=== PATIENT | male | born 1965 | race Caucasian/White ===

== ENCOUNTER → 2020-10-10 13:22 | Outpatient (BNVA) | payer MEDICAID, SELFPAY | PROVIDERS: PCP Internal Medicine; Visit Provider Urology | DX: Z76.89 Persons encountering health services in other specified circumstances (principal) ==

== ENCOUNTER 2021-02-07 14:15 | Outpatient (REF) | payer MEDICAID, SELFPAY ==
--- NOTE | ~2021-02-07 | XR_ITS ---
EXAMINATION: XR CERVICAL SPINE CLINICAL INFORMATION: Spondylosis. COMPARISON: Cervical spine radiographs dated 03/15/2016. TECHNIQUE: AP, lateral, open-mouth, and bilateral oblique views of the cervical spine. FINDINGS: Straightening of the normal cervical lordosis, which may be positional or related to muscle spasm. No acute fracture or subluxation. No loss of vertebral body height. Loss of intervertebral disc height with anterior endplate osteophytes at C4-C7. Findings appear slightly increased in prominence when compared to the prior examination. Associated bilateral neural foraminal stenosis at C4-C7. Normal atlantoaxial alignment. Unremarkable prevertebral soft tissues. XR/XR cervical spine 4V IMPRESSION: Straightening of the normal cervical lordosis, which may be positional or related to muscular spasm. Degenerative disc disease at C4-C7 with bilateral neural foraminal stenosis, increased when compared to the prior radiographs.
--- NOTE | ~2021-02-07 | XR_ITS ---
EXAMINATION: XR CHEST CLINICAL INFORMATION: Pleurodynia COMPARISON: Chest radiographs 02/01/2016 TECHNIQUE: 2 views of the chest were obtained. 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 The lungs are clear. The vascularity is normal. There is no pneumothorax, pleural reaction, airspace consolidation, or effusion. The heart is normal in size. The vascularity is normal. There is mild curvature again seen thoracic spine. No visible acute bony abnormality. XR/XR chest 2V IMPRESSION: Unremarkable examination.
== END 2021-02-07 14:16 | disposition home or self-care (01) ==
LOC: HO.XRAY 14:15
PROVIDERS: PCP Internal Medicine; Visit Provider Internal Medicine
DX: M47.892 Other spondylosis, cervical region (principal); R07.81 Pleurodynia
CPT/HCPCS: 71046; 72050

== ENCOUNTER 2021-03-23 12:16 | Outpatient (REF) | payer MEDICAID, SELFPAY ==
--- NOTE | ~2021-03-23 | XR_ITS ---
EXAMINATION: XR SHOULDER, LEFT CLINICAL INFORMATION: Shoulder pain COMPARISON: None TECHNIQUE: The left shoulder is imaged in 4 views. FINDINGS: There is no fracture, dislocation, destructive process. The glenohumeral joint appears normal. The acromioclavicular alignment is normal. There are no visible rotator cuff calcifications. XR/XR shoulder LT min 2V IMPRESSION: Normal left shoulder.
[2021-03-23 14:33] LABS: Alanine Aminotransferase 52 U/L (0-40); Albumin Level 3.9 g/dL (3.5-5.0); Alkaline Phosphatase 106 U/L (39-117); Anion Gap 13 (12-20); Aspartate Amino Transferase 27 U/L (5-37); Bilirubin Total 0.4 mg/dL (0.0-1.0); Blood Urea Nitrogen 10 mg/dL (9-16); Calcium 9.4 mg/dL (8.4-10.2); Carbon Dioxide 26 mmol/L (22-29); Chloride 104 mmol/L (96-108); Estimated Glomerular Filt Rate > 60; Glucose Random 151 mg/dL (60-115); Potassium 3.7 mmol/L (3.3-5.1); Sodium 139 mmol/L (135-145); Total Protein 7.1 g/dL (6.5-8.0)
[2021-03-23 14:59] LABS: PSA,Total (Free>4and<10) 1.18 ng/mL (0.00-4.00)
== END 2021-03-23 12:17 | disposition home or self-care (01) ==
LOC: HO.LAB 12:16
PROVIDERS: Absent Provider Urology; PCP Internal Medicine; Visit Provider Student in an Organized Health Care Education/Training Program
DX: M25.50 Pain in unspecified joint (principal); N40.1 Benign prostatic hyperplasia with lower urinary tract symptoms; N13.8 Other obstructive and reflux uropathy; Z12.5 Encounter for screening for malignant neoplasm of prostate
CPT/HCPCS: 36415; 73030; 80053; 84153; 99212

== ENCOUNTER 2021-06-10 10:39 | Outpatient (REF) | payer MEDICAID, SELFPAY ==
[2021-06-10 12:09] LABS: Anion Gap 12 (12-20); Blood Urea Nitrogen 11 mg/dL (9-16); Calcium 9.3 mg/dL (8.4-10.2); Carbon Dioxide 27 mmol/L (22-29); Chloride 105 mmol/L (96-108); Cholesterol 204 mg/dL; Estimated Glomerular Filt Rate > 60; Glucose Random 111 mg/dL (60-115); HDL Cholesterol 29 mg/dL; LDL Cholesterol Calculated 96 mg/dl; Potassium 4.1 mmol/L (3.3-5.1); Sodium 140 mmol/L (135-145); Triglycerides 397 mg/dL
== END 2021-06-10 10:40 | disposition home or self-care (01) ==
LOC: HO.LAB 10:39
PROVIDERS: PCP Internal Medicine; Visit Provider Internal Medicine
DX: E78.2 Mixed hyperlipidemia (principal); F41.9 Anxiety disorder, unspecified; R07.89 Other chest pain; R60.0 Localized edema; R73.01 Impaired fasting glucose
CPT/HCPCS: 36415; 80048; 80061

== ENCOUNTER → 2021-08-04 12:42 | Outpatient (REF) | payer MEDICAID, SELFPAY ==
--- NOTE | 2021-08-04 13:00 | CA_ITS ---
Transthoracic Echocardiogram Patient (Last, First, Middle): Miguel Jackson A Gender: Male Date of : 1965 Age: 55 Procedure Date: 08/04/2021 Procedure Type: Transthoracic Echocardiogram Location: OP Height: 175.26 cm Weight: 99.79 kg BSA: 2.15 m2 Heart Rate: bpm BP: 130 / 90 mmHg Physical Damage Appraiser: DENA Yin MD: Sunita Reddy MD Director Investment Banking: Andrea Bardales MD Symptoms: HTN,CP Study Quality: Fair ECG Rhythm: Sinus Conclusions: - 1. Normal LV systolic function with impaired relaxation filling pattern 2. Normal cardiac valvular Doppler 3. Normal RV systolic pressure 4. No pericardial effusion Findings Left Ventricle Normal left ventricular size, thickness, and systolic function. The visually estimated ejection fraction is between 60-65%. Spectral Doppler is indicative of an impaired relaxation filling pattern. E/E prime ratio is between 8 and 15 consistent with indeterminate filling pressures. Right Ventricle Normal right ventricular cavity size and systolic function. Atria The left atrium is normal in size. There is no evidence of interatrial shunt. The right atrium is normal in size. Aortic Valve Normal aortic valve structure and function. There is no aortic valve stenosis. There is no aortic valve regurgitation. Mitral Valve Normal mitral valve structure and function. There is trace mitral valve regurgitation. There is no mitral valve stenosis. Pulmonic Valve The pulmonic valve is likely normal. There is trace pulmonic valve regurgitation. Tricuspid Valve Normal tricuspid valve structure. There is trace tricuspid valve regurgitation. The right ventricular systolic pressure is normal. The right ventricular systolic pressure is 16 mmHg. Normal right atrial pressure. There is no evidence of pulmonary hypertension. Great Vessels All visible segments of the aorta are normal in size. The pulmonary artery was not well visualized. Venous The inferior vena cava is normal in size and collapses greater than 50% with inspiration. Pericardium/Pleural There is no evidence of pericardial effusion. Prior Study Comparison No significant change compared to prior study dated: 03/29/2016. Measurements 2D Linear Measurements IVSd: 1.09 0.6-0.9/0.6-1.0 cm LVIDd: 4.63 3.9-5.3/4.2-5.9 cm LVIDd Index: 2.15 2.4-3.2/2.2-3.1 cm/m2 LVIDs: 3.24 2.0-3.6 cm LVPWd: 1.00 0.7-1.1 cm Ao Root: 3.70 2.1-3.5 cm LA Diam: 3.90 2.7-3.8/3.0-4.0 cm LAIDs Index: 1.81 1.5-2.3 cm/m2 LV Mass: 212.10 67-162/88-224 g LV Mass Index: 98.65 43-95/49-115 g/m2 LVOT Diam: 2.10 3.0+(-)1.3 cm 2D Systolic Function EF 4C: 55.10 >55% EF 2C: 68.70 >55% EF BiP: 62.00 >55% Mitral Valve MV Pk E: 0.60 MV PK A: 0.73 MV Decel Time: 351.00 E/A: 0.80 E'Lateral: 5.22 E'Medial: 6.20 E/E' Med: 9.70 E/E' Lat: 11.50 PHT: 103.00 MVA PHT: 2.14 Decel [place]: 1.71 Aortic Valve AoV Pk Duke: 1.02 AoV Mn Duke: 0.77 AoV VTI: 0.23 AoV Pk Grad: 4.00 Aov Mn Grad: 3.00 EDWIN Cont.VTI: 2.78 LVOT LVOT Pk Duke: 0.73 LVOT Mn Duke: 0.54 LVOT VTI: 0.19 LVOT Pk Grad: 2.00 LVOT Mn Grad: 1.00 LVOT Diam: 2.10 LVOT Area: 3.46 Diastolic Function MV Pk E: 0.60 MV Pk A: 0.73 E/A: 0.80 E'Medial: 6.20 E/E' Med: 9.70 E' Laterial: 5.22 E/E' Lat: 11.50 Right Ventricle TAPSE (mm): 2.49 TVS' Duke: 12.00 Tricuspid Valve TR Pk Duke: 1.83 TR Pk Grad: 13.00 RA Press: 3.00 RVSP: 16.00 Great Vessels Aorta Ao Root-2D: 3.70 2.0-3.7 cm Ao Asc: 3.50 2.1-3.4 cm Ao Arch: 3.10 Updated in Other Vendor System with Status of Final Andrea Bardales MD electronically signed on 08/05/2021 2:18:56 PM with status of Final
== END ==
LOC: HO.CARD 12:42
PROVIDERS: Visit Provider Internal Medicine
DX: I10 Essential (primary) hypertension (principal); R07.89 Other chest pain; R60.0 Localized edema; R73.01 Impaired fasting glucose
CPT/HCPCS: 93306

== ENCOUNTER → 2021-09-22 13:02 | Outpatient (BNVA) | payer MEDICAID, SELFPAY | PROVIDERS: Visit Provider Urology ==

== ENCOUNTER 2021-12-07 08:06 | Outpatient (REF) | payer MEDICAID, SELFPAY ==
--- NOTE | 2021-12-07 08:09 | EMG_ITS ---
Left tibial and peroneal motor studies were performed. Left superficial peroneal, sural and medial lateral plantar studies were performed. Tibial H-reflex was obtained and paraspinal muscles were tested with a needle. IMPRESSION: 1. No evidence of lumbar radiculopathy. 2. 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 3. 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 MD REMINGTON Diaz/CALEBL / [id number]
== END 2021-12-07 08:07 | disposition home or self-care (01) ==
LOC: HO.NEURO 08:06
PROVIDERS: PCP Internal Medicine; Visit Provider Internal Medicine
DX: M54.42 Lumbago with sciatica, left side (principal)
CPT/HCPCS: 95886; 95910

== ENCOUNTER 2021-12-19 11:46 | Outpatient (REF) | payer MEDICAID, SELFPAY ==
--- NOTE | ~2021-12-19 | XR_ITS ---
EXAMINATION: XR ANKLE, LEFT CLINICAL INFORMATION: Tarsal tunnel syndrome COMPARISON: None TECHNIQUE: AP, lateral, and mortise views of the left ankle. FINDINGS: No fracture or dislocation. Ankle mortise is maintained. Talar dome is intact. Small calcaneal spurring. No abnormal soft tissue calcification. XR/XR ankle LT min 3V IMPRESSION: No acute osseous abnormality
== END 2021-12-19 11:47 | disposition home or self-care (01) ==
LOC: HO.XRAY 11:46
PROVIDERS: PCP Internal Medicine; Visit Provider Internal Medicine
DX: G57.52 Tarsal tunnel syndrome, left lower limb (principal)
CPT/HCPCS: 73610

== ENCOUNTER → 2021-12-27 14:08 | Outpatient (BNVA) | payer MEDICAID, SELFPAY | PROVIDERS: PCP Internal Medicine; Visit Provider Nurse Practitioner Family | DX: M25.50 Pain in unspecified joint (principal); M54.2 Cervicalgia; M54.50 Low back pain, unspecified | CPT/HCPCS: 99212 ==

== ENCOUNTER → 2022-01-09 14:44 | Outpatient (BNVA) | payer MEDICAID, SELFPAY | PROVIDERS: PCP Internal Medicine; Visit Provider Urology | DX: N52.01 Erectile dysfunction due to arterial insufficiency (principal); E29.1 Testicular hypofunction; N32.0 Bladder-neck obstruction | CPT/HCPCS: 52000; 99212 ==

== ENCOUNTER → 2022-04-02 10:44 | Outpatient (BNVA) | payer MEDICAID, SELFPAY | PROVIDERS: PCP Internal Medicine; Visit Provider Internal Medicine | DX: M50.30 Other cervical disc degeneration, unspecified cervical region (principal); M67.912 Unspecified disorder of synovium and tendon, left shoulder; M47.816 Spondylosis without myelopathy or radiculopathy, lumbar region | CPT/HCPCS: 99202 ==

== ENCOUNTER 2022-05-11 17:45 | Outpatient (REF) | payer MEDICAID, SELFPAY ==
--- NOTE | ~2022-05-11 | MR_ITS ---
EXAMINATION: MR CERVICAL SPINE WITHOUT CONTRAST CLINICAL INFORMATION: 56-year-old with self-reported neck pain radiating to the left arm of 6 months' duration with numbness and weakness. Evaluate cervical disc degeneration. COMPARISON: 02/07/2021 x-rays. TECHNIQUE: MRI of the cervical spine was obtained using routine sequences without contrast. TECHNICAL NOTE: Note that the axial and sagittal STIR sequences were degraded by motion artifact on some images. FINDINGS: ALIGNMENT: The cervical spine is anatomically aligned. No spondylolisthesis or retrolisthesis. CRANIOCERVICAL JUNCTION/C1-C2 ARTICULATIONS: Intact and aligned. VISUALIZED INTRACRANIAL STRUCTURES: Within normal limits. VERTEBRAL BODIES: Slight chronic loss of height of the C5 vertebral body and [id number] chronic loss of height of the C6 vertebral body with slight chronic loss of height of C7 stable in appearance from previous x-rays. Remaining vertebral body heights are well-maintained. DISC SPACES AND ENDPLATES: Mild loss of height of the C4-C5 intervertebral disc space stable from x-rays with minor anterior marginal endplate spurring unchanged. [id number] loss of height of C5-C6 with moderate anterior marginal spondylosis stable from previous x-rays. Schmorl's node formation along the superior endplate of C7 with minor anterior marginal endplate spurring at C6-C7. Slightly biconcave fishmouth remodeling at the C6-C7 level as well stable from previous x-rays. BONE MARROW: No suspicious marrow-replacing process or unusual bone marrow edema. Mild type I degenerative marrow signal changes seen along the superior endplate of C7. SPINAL LEVELS: C2-C3: No disc herniation or canal stenosis. No significant DJD or neural foraminal stenosis. C3-C4: No disc herniation or canal stenosis. No significant DJD or neural foraminal stenosis. C4-C5: Central to left paramedian disc protrusion and small right paramedian disc protrusion with posterior endplate spurring and flattening of the ventral dural sac asymmetric to the left without cord impingement. No significant spinal canal stenosis. Bilateral uncovertebral spurring is noted with moderate to severe bilateral neural foraminal stenosis. C5-C6: There is bilateral posterolateral disc osteophyte complex with bilateral uncovertebral spurring without significant spinal canal stenosis. There is moderate to severe bilateral neural foraminal stenosis. C6-C7: Broad-based disc osteophyte complex noted asymmetric to the right with flattening of the ventral dural sac without cord impingement. Mild spinal canal stenosis is noted. There is uncovertebral arthropathy right more than left with moderate left-sided and moderate to severe right-sided neural foraminal stenosis. C7-T1: Right subarticular disc herniation noted with slight encroachment on the right neural foramen, which abuts the exiting right C8 nerve root with [id number] right-sided foraminal stenosis. No canal stenosis. No significant DJD. T1-T2: Tiny right paramedian disc protrusion noted. No facet arthrosis, canal or neural foraminal stenosis. SPINAL CORD: The cervical and visualized upper thoracic spinal cord is normal in morphology, caliber and signal intensity throughout. EXTRACRANIAL SOFT TISSUES: There is a single 1.1 x 1.2 cm suprahyoid right IJ chain lymph node which has a somewhat rounded appearance and there is a 1.7 x 0.8 cm left suprahyoid IJ chain lymph node slightly prominent in size. Other smaller IJ chain lymph nodes are seen bilaterally. Normal signal voids are seen within the major arterial neck vessels. MR/MR cervical spine wo con IMPRESSION: 1. Normal spinal alignment. Multilevel discogenic degenerative changes and spondylosis are noted as described above most apparent between at C4-C5 and C6-C7 inclusive, with multilevel disc herniations and disc osteophyte complex, with mild spinal canal stenosis at C6-C7. No spinal cord impingement. Right lateral disc herniation at C7-T1 encroaches on the exiting right C8 nerve root. 2. Multilevel uncovertebral arthrosis, as described above with the multilevel moderate to severe bilateral neural foraminal stenosis between C4-C5 and C6-C7 inclusive. 3. Moderately prominent suprahyoid IJ chain lymph nodes at level IIA. Follow-up as per clinical indications. On the right, one of these has a rounded appearance. Possible etiologies could include infectious, inflammatory and neoplastic disease. The PSA staff will call to confirm receipt of this report with acknowledgement of the findings and any recommendations.
== END 2022-05-11 17:46 | disposition home or self-care (01) ==
LOC: HO.MRI 17:45
PROVIDERS: Visit Provider Internal Medicine
DX: M50.30 Other cervical disc degeneration, unspecified cervical region (principal)
CPT/HCPCS: 72141

== ENCOUNTER 2022-07-17 10:41 | Outpatient (REF) | payer MEDICAID, SELFPAY ==
[2022-07-22 14:17] LABS: Testosterone, Free 28.7 pg/mL (35.0-155.0); Testosterone, Total 190 ng/dL (250-1100)
== END 2022-07-17 10:42 | disposition home or self-care (01) ==
LOC: HO.LAB 10:41
PROVIDERS: PCP Internal Medicine; Visit Provider Urology
DX: E29.1 Testicular hypofunction (principal)
CPT/HCPCS: 36415; 84402; 84403

== ENCOUNTER 2022-10-02 11:11 | Outpatient (REF) | payer MEDICAID, SELFPAY ==
[2022-10-02 13:06] LABS: Prostate Specific Antigen 0.64 ng/mL (<0.05-4.0)
[2022-10-09 13:39] LABS: Testosterone, Free 61.2 pg/mL (35.0-155.0); Testosterone, Total 342 ng/dL (250-1100)
== END 2022-10-02 11:12 | disposition home or self-care (01) ==
LOC: HO.LAB 11:11
PROVIDERS: PCP Internal Medicine; Visit Provider Urology
DX: E29.1 Testicular hypofunction (principal); N32.0 Bladder-neck obstruction
CPT/HCPCS: 36415; 84153; 84402; 84403

== ENCOUNTER 2022-10-09 15:37 | Outpatient (AMB) | payer MEDICAID, SELFPAY ==
--- NOTE | 2022-10-09 15:38 | MHC.OFFVIS ---
Intake Intake Visit Reasons: PSA/TESTOSTERONE(set) Intake Note: Patient is present for Telephone LABS Follow Up Urology Medication: Sildenafil Blood Thinner: None Allergies ketorolac [From TORADOL] Allergy (Intermediate, Verified 08/30/23 09:37) dizziness tramadol Allergy (Intermediate, Verified 08/30/23 09:37) dizziness HPI HPI Comments History of Present Illness Details Miguel is a pleasant male. He is a patient of Dr. Reddy. He is seen for the following urologic conditions - lower urinary tract symptoms - hypogonadism - erectile dysfunction Maori translation provided by qualified medical insurance collector Cystoscopy performed Bladder neck open Does drink coffee all day and fluid after 07:00 o'clock These will impact nocturia Trial daily tadalafil Lower urinary tract symptoms Prior laser prostatectomy Had previously had reasonable voiding Ongoing urge and urge frequency Prior cystoscopy with bladder neck contracture Initial deferred therapy Hypogonadism Labs - 10/11 T 342 F 61 PSA 0.6 Erectile dysfunction in setting of diabetes Prior responsiveness to Viagra 100 mg PFSH Medical History (Updated 08/30/23 @ 13:05 by OSITO Ortiz-) Ankle pain, right Ankle pain, right Knee pain, right Knee pain, left Rib pain on right side Nocturia Surgical History History of prostate surgery (~2015) Family History (Updated 08/30/23 @ 09:38 by FRANCOIS Dillard) Other CVD (cardiovascular disease) HTN (hypertension) Social History (Updated 08/30/23 @ 09:37 by FRANCOIS Dillard) Household Members: Spouse Alcohol intake: former Patient Tobacco Use Status: Never used Tobacco e-Cigarette/Vaping Use: Never Used Current occupational status: unemployed Review of Systems Const Denies chills and Denies fever(s) Card Reports no additional complaints and Denies syncope Resp Denies cough GI Denies abdominal pain and Denies heartburn Reports as per HPI and Denies change in libido Neuro Denies syncope Psych Denies change in libido Endo Denies change in libido Physical Exam Const General: cooperative, healthy appearing, comfortable and no acute distress Orientation/consciousness: patient oriented x3 HEENT Face and sinus: Yes normal facial exam Mouth: moist mucous membranes Neck Neck: Yes normal visual inspection, Yes full ROM and Yes trachea midline Chest Chest palpation & inspection: normal inspection of the chest Resp Effort & Inspection: normal respiratory effort, able to speak in complete sentences and no respiratory distress GI Inspection: Yes normal to inspection Back/Spine/Pelvis Cervical Spine: normal cervical lordosis Thoracic/Lumbar Spine: thoracic and lumbar spine normal to inspection Skin General skin exam: no rashes or lesions noted Neuro General: patient oriented x3, gait normal, tone normal and moves all extremities Extrem General: Yes normal to inspection and Yes capillary refill normal Assessment & Plan Assessment & Plan (1) Erectile dysfunction due to arterial insufficiency: Code(s): N52.01 - Erectile dysfunction due to arterial insufficiency (2) Bladder outlet obstruction: Code(s): N32.0 - Bladder-neck obstruction Plan Trial tadalafil Six-month follow-up Orders: Orders Prostate Specific Antigen 10/02/22 N32.0 - Bladder-neck obstruction Medications: New tadalafil 5 mg PO DAILY 90 tabs 1RF bladder outlet 90 days N52.01 - Erectile dysfunction due to arterial insufficiency Patient Instructions: Imaging studies, laboratory and physical exam results were discussed and reviewed in detail. No major barriers to patient understanding were identified. An opportunity to ask questions regarding the treatment plan was provided. All questions were answered. The patient expressed understanding and agreement with the above treatment plan. The patient is aware they should contact our office by phone for worsening of their current condition or the appearance of new urologic symptoms. Compliance is encouraged with any medications and followup testing that is ordered. It is a privilege to participate in the urologic care of your patient. If you have any questions or concerns regarding treatment for the above conditions, or other urologic issues, please do not hesitate to contact me. The office telephone contact is [phone]. This note is constructed using voice recognition software. While every effort has been made to ensure accuracy meter supervisor errors may have been included. Yours sincerely, Dr Bronson Kim MD, IB[facility] - Urology Providers of Expert, Compassionate Care for the Genitourinary System Telehealth Telehealth Location of provider rendering services: practice address Location of patient: address on file Patient Identification confirmed using: Name, : Yes Telehealth method: voice only Patient verbally consented to treatment: Yes Patient verbally consented to billing insurance company: Yes Patient informed of any privacy concerns related to visit: Yes Coding Level of Care Code Est Pt Level 4 (42319) Diagnoses Erectile dysfunction due to arterial insufficiency N52.01 Bladder outlet obstruction N32.0
== END 2022-10-09 15:58 | disposition home or self-care (01) ==
LOC: HO.HUSH 15:37
PROVIDERS: PCP Internal Medicine; Visit Provider Urology
DX: N52.01 Erectile dysfunction due to arterial insufficiency (principal); N32.0 Bladder-neck obstruction
CPT/HCPCS: 99214; 99499

== ENCOUNTER → 2022-10-09 15:37 | Outpatient (BNVA) | payer MEDICAID, SELFPAY | PROVIDERS: PCP Internal Medicine; Visit Provider Urology | DX: Z13.89 Encounter for screening for other disorder (principal) | CPT/HCPCS: 99212 ==

== ENCOUNTER → 2023-01-11 14:13 | Outpatient (BNVA) | payer MEDICAID, SELFPAY | PROVIDERS: PCP Internal Medicine; Visit Provider Urology | DX: R39.15 Urgency of urination (principal); N52.01 Erectile dysfunction due to arterial insufficiency; R35.1 Nocturia; E29.1 Testicular hypofunction | CPT/HCPCS: 99212 ==

== ENCOUNTER → 2023-01-16 10:31 | Outpatient (BNVA) | payer MEDICAID, SELFPAY | PROVIDERS: PCP Internal Medicine; Visit Provider Nurse Practitioner Family | DX: M25.50 Pain in unspecified joint (principal); M79.671 Pain in right foot; M79.672 Pain in left foot | CPT/HCPCS: 99212 ==

== ENCOUNTER 2023-01-22 11:03 | Outpatient (REF) | payer MEDICAID, SELFPAY ==
[2023-01-22 14:01] LABS: MANUAL DIFF FLAG NO
[2023-01-22 14:12] LABS: Basophils Percent Auto 0.3 % (0-2); Eosinophils Absolute Auto 0.2 X10*3/uL (0.0-0.4); Eosinophils Percent Auto 1.9 % (0-4); Hemoglobin 14.4 g/dl (14.0-18.0); Imm Gran Abs Auto 0.02 X10*3/uL (0.00-0.03); Imm Gran Pct Auto 0.2 % (0.0-0.4); Lymphocytes Absolute Auto 2.1 X10*3/uL (1.2-4.9); Lymphocytes Percent Auto 22.6 % (20-40); Mean Corpuscular HGB Conc 33.5 g/dl (31.0-36.0); Mean Corpuscular Hemoglobin 28.4 pg (27.0-33.0); Mean Corpuscular Volume 84.8 fL (80.0-98.0); Mean Platelet Volume 10.6 fL (9.4-12.4); Monocytes Absolute Auto 0.7 X10*3/uL (0.1-1.2); Monocytes Percent Auto 7.7 % (2-11); Neutrophils Absolute Auto 6.3 x10*3/uL (2.0-8.3); Neutrophils Percent Auto 67.3 % (45-73); Platelet Count 283 X10*3/uL (160-400); Red Blood Count 5.07 X10*6/uL (4.60-5.80); Red Cell Distribution Width 13.9 % (11.0-16.0); White Blood Count 9.4 X10*3/uL (4.8-10.8)
[2023-01-22 14:20] LABS: Alanine Aminotransferase 36 U/L (0-40); Albumin Level 3.7 g/dL (3.5-5.0); Alkaline Phosphatase 77 U/L (39-117); Anion Gap 14 (12-20); Aspartate Amino Transferase 24 U/L (5-37); Bilirubin Total 0.4 mg/dL (0.0-1.0); Blood Urea Nitrogen 12 mg/dL (9-16); Calcium 8.7 mg/dL (8.4-10.2); Carbon Dioxide 24 mmol/L (22-29); Chloride 106 mmol/L (96-108); Estimated Glomerular Filt Rate > 60; Glucose Random 112 mg/dL (60-115); Sodium 140 mmol/L (135-145); Total Protein 6.5 g/dL (6.5-8.0)
[2023-01-22 14:58] LABS: Erythrocyte Sedimentation Rate 10 MM/HR (0-15)
== END 2023-01-22 11:04 | disposition home or self-care (01) ==
LOC: HO.10HDL 11:03
PROVIDERS: Visit Provider Nurse Practitioner Family
DX: M25.50 Pain in unspecified joint (principal)
CPT/HCPCS: 36415; 80053; 85025; 85652; 86140

== ENCOUNTER 2023-06-25 08:25 | Outpatient (REF) | payer MEDICAID, SELFPAY ==
[2023-06-30 12:49] LABS: Testosterone, Total 127 ng/dL (250-1100)
== END 2023-06-25 08:26 | disposition home or self-care (01) ==
LOC: HO.LAB 08:25
PROVIDERS: PCP Internal Medicine; Visit Provider Urology
DX: E29.1 Testicular hypofunction (principal)
CPT/HCPCS: 36415; 84403

== ENCOUNTER 2023-07-16 13:27 | Outpatient (AMB) | payer MEDICAID, SELFPAY ==
--- NOTE | 2023-07-16 14:18 | MHC.OFFVIS ---
Intake Intake Visit Reasons: 6M Testosterone(set) Intake Note: Patient is Present for Follow Up LABS Urology Medication: Sildenafil, Tadalafil Antibiotic Allergies: None Blood Thinners: Aspirin [facility]: [facility] Allergies ketorolac [From TORADOL] Allergy (Intermediate, Verified 07/16/23 14:20) dizziness tramadol Allergy (Intermediate, Verified 07/16/23 14:20) dizziness Medication List - Last Reconciled 07/16/23 by Bronson Kim MD amlodipine 10 mg PO QAM ammonium lactate 12% appl topical DAILY PRN aspirin 1 tab PO DAILY atenolol 50 mg PO DAILY atorvastatin 40 mg PO BEDTIME blood sugar diagnostic (FreeStyle Lite Strips) As directed bupropion HCl 300 mg PO QAM cholecalciferol (vitamin D3) 50 mcg PO QAM cyanocobalamin (vitamin B-12) 1,000 mcg PO QAM duloxetine 60 mg PO QAM lisinopril 40 mg PO QAM naproxen 500 mg PO BID omeprazole 20 mg PO QAM quetiapine (Seroquel) 100 mg PO BEDTIME sildenafil (Viagra) 25 mg PO DAILY PRN 30 days tadalafil 5 mg PO DAILY 90 days HPI HPI Comments History of Present Illness Details Miguel is a pleasant male. He is a patient of Dr. Reddy. He is seen for the following urologic conditions - lower urinary tract symptoms - hypogonadism - erectile dysfunction Irish translation provided by qualified auditor medical claims Improved well being Low testosterone today on testing Like to continue with daily tadalafil 12 month follow-up Lower urinary tract symptoms Prior laser prostatectomy Ongoing urge and urge frequency Prior cystoscopy with bladder neck contracture 01/09 cystoscopy with open bladder neck Hypogonadism Labs - 10/11 T 342 F 61 PSA 0.6 Erectile dysfunction in setting of diabetes Prior responsiveness to Viagra 100 mg Improvement with daily tadalafil PFSH Medical History Nocturia Surgical History History of prostate surgery (~2015) Family History Other CVD (cardiovascular disease) HTN (hypertension) Social History Alcohol intake: former Patient Tobacco Use Status: Never used Tobacco e-Cigarette/Vaping Use: Never Used Review of Systems Const Denies chills and Denies fever(s) Card Reports no additional complaints and Denies syncope Resp Denies cough GI Denies abdominal pain and Denies heartburn Reports as per HPI and Denies change in libido Neuro Denies syncope Psych Denies change in libido Endo Denies change in libido Physical Exam Const General: cooperative, healthy appearing, comfortable and no acute distress Orientation/consciousness: patient oriented x3 HEENT Face and sinus: Yes normal facial exam Mouth: moist mucous membranes Neck Neck: Yes normal visual inspection, Yes full ROM and Yes trachea midline Chest Chest palpation & inspection: normal inspection of the chest Resp Effort & Inspection: normal respiratory effort, able to speak in complete sentences and no respiratory distress GI Inspection: Yes normal to inspection Back/Spine/Pelvis Cervical Spine: normal cervical lordosis Thoracic/Lumbar Spine: thoracic and lumbar spine normal to inspection Skin General skin exam: no rashes or lesions noted Neuro General: patient oriented x3, gait normal, tone normal and moves all extremities Extrem General: Yes normal to inspection and Yes capillary refill normal Assessment & Plan Assessment & Plan (1) Urinary urgency: Code(s): R39.15 - Urgency of urination (2) Erectile dysfunction due to arterial insufficiency: Code(s): N52.01 - Erectile dysfunction due to arterial insufficiency (3) Bladder outlet obstruction: Code(s): N32.0 - Bladder-neck obstruction Plan One year follow-up Orders: Orders Testosterone, Total 365 Days E29.1 - Testicular hypofunction Prostate Specific Antigen 364 Days E29.1 - Testicular hypofunction Medications: Refilled tadalafil 5 mg PO DAILY 90 tabs 3RF bladder outlet 90 days N52.01 - Erectile dysfunction due to arterial insufficiency Patient Instructions: Imaging studies, laboratory and physical exam results were discussed and reviewed in detail. No major barriers to patient understanding were identified. An opportunity to ask questions regarding the treatment plan was provided. All questions were answered. The patient expressed understanding and agreement with the above treatment plan. The patient is aware they should contact our office by phone for worsening of their current condition or the appearance of new urologic symptoms. Compliance is encouraged with any medications and followup testing that is ordered. It is a privilege to participate in the urologic care of your patient. If you have any questions or concerns regarding treatment for the above conditions, or other urologic issues, please do not hesitate to contact me. The office telephone contact is [phone]. This note is constructed using voice recognition software. While every effort has been made to ensure accuracy electric freight car operator errors may have been included. Yours sincerely, Dr Bronson Kim MD, [facility] - Urology Providers of Expert, Compassionate Care for the Genitourinary System Coding Level of Care Code Est Pt Level 3 (50025) Diagnoses Urinary urgency R39.15 Erectile dysfunction due to arterial insufficiency N52.01 Bladder outlet obstruction N32.0
== END 2023-07-16 14:40 | disposition home or self-care (01) ==
PROVIDERS: PCP Registered Nurse; Visit Provider Urology
DX: R39.15 Urgency of urination (principal); N52.01 Erectile dysfunction due to arterial insufficiency; N32.0 Bladder-neck obstruction
CPT/HCPCS: 99213

== ENCOUNTER → 2023-07-16 13:27 | Outpatient (BNVA) | payer MEDICAID, SELFPAY | PROVIDERS: Visit Provider Urology | DX: R39.15 Urgency of urination (principal); N32.0 Bladder-neck obstruction; N52.01 Erectile dysfunction due to arterial insufficiency | CPT/HCPCS: 99212 ==

== ENCOUNTER 2023-07-23 11:06 | Outpatient (REF) | payer MEDICAID, SELFPAY ==
[2023-07-23 14:08] LABS: Free T4 (Free Thyroxine) 0.95 ng/dL (0.71-1.85); T4 Thyroxine 9.2 ug/dL (4.5-12.0); TSH reflex Free T4 3.38 uIU/mL (0.32-4.0); Thyroid Stimulating Hormone 3.38 uIU/mL (0.32-4.0)
[2023-07-25 02:49] LABS: Triiodothyronine T3 Total 154 ng/dL (76-181)
== END 2023-07-23 11:07 | disposition home or self-care (01) ==
LOC: HO.HHCL 11:06
PROVIDERS: Visit Provider Internal Medicine
DX: R79.89 Other specified abnormal findings of blood chemistry (principal)
CPT/HCPCS: 36415; 84436; 84439; 84443; 84480

== ENCOUNTER 2023-08-09 14:18 | Outpatient (REF) | payer MEDICAID, SELFPAY ==
[2023-08-09 16:16] LABS: MANUAL DIFF FLAG NO
[2023-08-09 16:21] LABS: Basophils Percent Auto 0.4 % (0-2); Eosinophils Absolute Auto 0.2 X10*3/uL (0.0-0.4); Eosinophils Percent Auto 1.5 % (0-4); Hematocrit 46.1 % (42.0-52.0); Hemoglobin 15.4 g/dl (14.0-18.0); Imm Gran Abs Auto 0.03 X10*3/uL (0.00-0.03); Imm Gran Pct Auto 0.3 % (0.0-0.4); Lymphocytes Absolute Auto 2.1 X10*3/uL (1.2-4.9); Lymphocytes Percent Auto 20.4 % (20-40); Mean Corpuscular HGB Conc 33.4 g/dl (31.0-36.0); Mean Corpuscular Hemoglobin 28.6 pg (27.0-33.0); Mean Corpuscular Volume 85.7 fL (80.0-98.0); Monocytes Absolute Auto 0.8 X10*3/uL (0.1-1.2); Monocytes Percent Auto 7.4 % (2-11); Neutrophils Absolute Auto 7.1 x10*3/uL (2.0-8.3); Platelet Count 297 X10*3/uL (160-400); Red Blood Count 5.38 X10*6/uL (4.60-5.80); Red Cell Distribution Width 13.5 % (11.0-16.0); White Blood Count 10.2 X10*3/uL (4.8-10.8)
[2023-08-09 17:05] LABS: Prostate Specific Antigen 1.23 ng/mL (<0.05-4.0)
[2023-08-13 13:48] LABS: Testosterone, Total 457 ng/dL (250-1100)
== END 2023-08-09 14:19 | disposition home or self-care (01) ==
LOC: HO.HHCL 14:18
PROVIDERS: PCP Registered Nurse; Visit Provider Urology
DX: E29.1 Testicular hypofunction (principal); R04.0 Epistaxis
CPT/HCPCS: 36415; 84153; 84403; 85025

== ENCOUNTER 2023-08-30 09:19 | Outpatient (AMB) | payer MEDICAID, SELFPAY ==
--- NOTE | 2023-08-30 09:33 | MHC.OFFVIS ---
Intake Vital Signs 08/30/23 09:34 Height 5 ft 9 in Weight 214 lb 4.629 oz BMI 31.6 BP 106/70 Blood Pressure Location Lt brachial Position Sitting Pulse 64 Pulse Source Pulse Oximeter Temp 97.2 F Temp Source Skin Pulse Oximetry (%) 97 Oxygen Delivery Method Room Air Intake Visit Reasons: joint pain Intake Note: Patient presents today to follow up on joint pain. Last seen- 01/16/23 Estela c/o right sided upper back pain x 2 wks causing limited ROM. Back feels heavy . c/o neck pain limiting ROM Contact Lens Molder Required: Yes Contact Lens Molder Language: Systems Programmer Analyst Name: Marcial [id number] Information Interpreted: clinical only Accompanied by: Self / Same As Patient Allergies ketorolac [From TORADOL] Allergy (Intermediate, Verified 08/30/23 09:37) dizziness tramadol Allergy (Intermediate, Verified 08/30/23 09:37) dizziness HPI HPI Comments History of Present Illness Details Mr. Irene, a 57yoM presents for follow-up of joint pain. Last seen in January 16, 2023. Patient reports chronic cervical neck pain, back pain, knee pain and bilateral ankle pain present for many months. He has a history of degenerative disc disease in the C-spine and follows with Pain Management. He completed an MRI of the cervical spine 05/11/2022, Pain management ordered a Tens unit to help with his low back pain. He has yet followed up with Pain Management. He reports bilateral ankle pain that is worse in the morning and with use. He reports intermittent swelling in bilateral ankles. He is managing his pain symptoms with naproxen with some effect. He also has knee pain. Denies any other joint swelling. He also complains of right posterior rib pain on palpation. It also hurts if he takes a deep breath at times. He continues taking Seroquel, duloxetine and bupropion. He follows with a psychiatrist and a therapist. He states he is sleeping okay. He is not currently exercising at this time. Patient states he does not currently work. Follows with Urology for bladder outlet obstruction. He denies fevers, ulcers, Raynaud's, iritis, uveitis, or hx. of inflammatory bowel disease. FORMERLY [facility], [facility] Medical History (Updated 08/30/23 @ 13:05 by JHONATAN Ortiz) Ankle pain, right Ankle pain, right Knee pain, right Knee pain, left Rib pain on right side Nocturia Surgical History History of prostate surgery (~2016) Family History (Updated 08/30/23 @ 09:38 by FRANCOIS Craft) Other CVD (cardiovascular disease) HTN (hypertension) Social History (Updated 08/30/23 @ 09:37 by FRANCOIS Craft) Household Members: Spouse Alcohol intake: former Patient Tobacco Use Status: Never used Tobacco e-Cigarette/Vaping Use: Never Used Current occupational status: unemployed Review of Systems Const All systems reviewed & are unremarkable except as noted in HPI and below Physical Exam Vital Signs: Last Vital Signs Temp 97.2 F 08/30/23 09:34 Pulse 64 08/30/23 09:34 BP 106/70 08/30/23 09:34 Pulse Ox 97 08/30/23 09:34 Oxygen Delivery Method Room Air 08/30/23 09:34 BMI result Body Mass Index 31.6 APPEARANCE: Patient in no acute distress EYES: no redness, pupils equal and reactive to light, eyelids normal EARS: External ear normal, canal clear and tympanic membrane normal. NOSE/SINUS: Airflow through both nares, no nasal discharge, no bleeding THROAT: Oral mucosa moist, no ulcerations NECK: No thyromegaly or masses, no adenopathy, trachea midline. HEART: Regular rhythm, S1-S2 heard, no murmurs, rubs or gallops. LUNG: Clear to auscultation, respiratory rate regular and nonlabored. ABD: Normal bowel sounds, abdomen soft, nontender. EXTREMITIES: No edema, no calf tenderness, normal peripheral pulses. NEURO: Oriented and alert x3. No focal weakness. Gait normal. SKIN: No inflammatory or neoplastic lesions. Normal color and turgor JOINT EXAM:.?? Cervical Spine:? Full range of motion without pain; slight tenderness to palpation over the cervical spine. Thoracic Spine: No tenderness on palpation. Lumbar Spine:.? Alignment normal.? Pain with flexion, tenderness to palpation over the lumbar spine. Unable to curve spine past 90 degrees without marked discomfort Hands:? Normal pain-free range of motion without tenderness, swelling, increased warmth or erythema. Able to make a full fist and has a good vial gauger strength. Wrists:? Normal pain-free range of motion without tenderness, swelling, increased warmth or erythema. Elbows: Normal pain-free range of motion without tenderness, swelling, increased warmth or erythema. Shoulders:?? Full range of motion without pain. No tenderness, weakness, swelling, increased warmth or erythema. Hips: Full range of motion without pain. Pain in the lower back when lying flat on the exam and completing hip range of motion. Hip bursa:? No tenderness. Knees:? Normal pain-free range of motion without tenderness, swelling, increased warmth or erythema.? There is no effusion or crepitation Ankles: LEFT: Normal range of motion. Slight swelling and tenderness throughout the ankle. No erythema or warmth noted. RIGHT: Normal range of motion. Slight swelling and tenderness throughout the ankle. No erythema or warmth noted. Feet: LEFT: Normal range of motion. Tenderness to palpation throughout the top of the foot, bottom of the foot and over the MTPs. No synovitis noted in the toes. No increased warmth or erythema. RIGHT: Normal range of motion. Tenderness to palpation throughout the top of the foot, bottom of the foot and over the MTPs. No synovitis in the toes. No increased warmth or erythema. Tender points: Tenderness to digital palpation at the greater trochanter. Assessment & Plan Assessment & Plan (1) Knee pain, left: Code(s): M25.562 - Pain in left knee Qualifiers: Chronicity: chronic Qualified Code(s): M25.562 - Pain in left knee; G89.29 - Other chronic pain (2) Ankle pain, right: Code(s): M25.571 - Pain in right ankle and joints of right foot Qualifiers: Chronicity: chronic Qualified Code(s): M25.571 - Pain in right ankle and joints of right foot; G89.29 - Other chronic pain (3) Degenerative, intervertebral disc, cervical: Code(s): M50.30 - Other cervical disc degeneration, unspecified cervical region (4) Rib pain on right side: Code(s): R07.81 - Pleurodynia (5) Knee pain, right: Code(s): M25.561 - Pain in right knee Qualifiers: Chronicity: chronic Qualified Code(s): M25.561 - Pain in right knee; G89.29 - Other chronic pain (6) Ankle pain, right: Code(s): M25.571 - Pain in right ankle and joints of right foot Qualifiers: Chronicity: chronic Qualified Code(s): M25.571 - Pain in right ankle and joints of right foot; G89.29 - Other chronic pain Plan #Knee and Ankle Pain: Mr. Irene, 58 yoM with polyarthralgia more pronounced to his knees and ankles today. On exam patient has deniz tenderness to palpation throughout his feet and trace swelling noted throughout the ankles, but no tenderness to heels. Recommend bilateral ankle x-ray that were ordered at last visit, and I have added xray requisitions for the knees. I will start him on course of Prednisone and reevaluate for improvement. There are possibilities to an inflammatory etiology, such as an axial spondyloarthritis (nraxSPA), given the ankle swelling and lower back pain, though prior testing with negative DEONNA, rheumatoid factor, anti CCP antibody and HLA B27.? X-rays of the left shoulder (2020) and left ankle (2021) where normal. #Cervical spine:Cervical spine MRI April 2022 showed multilevel degenerative changes and spondylosis, with multilevel disc herniation and disc osteophyte complex and mild to moderate spinal canal stenosis at C6-C7. No spinal cord impingement. Right lateral disc herniation at C7-T1 encroaches on the exiting right C8 nerve root. MRI also details moderately prominent suprahyoid IJ chain lymph nodes at level IIA. On the right one of these has a rounded appearance. No lymphadenopathy noted on exam today. MRI results reviewed with patient. I recommend he follow-up with pain management as he continues to have cervical spine pain. He has not yet seen ENT for further evaluation of lymph nodes, despite the consult placed at last visit. Xray of his cervical spine (2020)showed possible muscle spasm and some degenerative disc disease. #Right posterior Rib Pain: Tenderness on palpation along right posterior 5th and 6th rib which patient says hurts more when in inhales deeply. No friction rub heard on PE, LCTA. Given that it is the posterior rib and not the area of the breast bone, this is less likely costochondritis and more possibly muscle strain or bruise. Discomfort increase when patient does a contralateral stretch. Will Obtain Xray to assess. Patient with a few fibromyalgia tender points on exam. Advised patient to incorporate light daily activity and follow-up with mental health provider. Continue current medications per psychiatry. . Orders: Orders XR ribs BI 3V Today R07.81 - Pleurodynia XR knee RT 3V Today M25.561 - Pain in right knee XR knee LT 3V Today M25.562 - Pain in left knee PT Evaluation and Treatment Today M25.561 - Pain in right knee, M25.562 - Pain in left knee, M47.816 - Spondylosis without myelopathy or radiculopathy, lumbar region, R07.81 - Pleurodynia Medications: New prednisone Take 3 tablets per day for 7 days, 2 tablets per day x 7 days, 1 tablet x 7 days and stop. 5 mg PO DIRECTED 90 tabs 0RF Coding Level of Care Code Est Pt Level 4 (73523) Diagnoses Chronic pain of left knee M25.562; G89.29 Chronicity: chronic Chronic pain of right ankle M25.571; G89.29 Chronicity: chronic Degenerative, intervertebral disc, cervical M50.30 Rib pain on right side R07.81 Chronic pain of right knee M25.561; G89.29 Chronicity: chronic
[2023-08-30 09:34] VITALS: BP 106/70; PULSE 64; TEMP 36.2; O2SAT 97; BMI 31.6
== END 2023-08-30 11:28 | disposition home or self-care (01) ==
PROVIDERS: PCP Registered Nurse; Visit Provider Nurse Practitioner Family
DX: M25.562 Pain in left knee (principal); G89.29 Other chronic pain; M25.571 Pain in right ankle and joints of right foot; M50.30 Other cervical disc degeneration, unspecified cervical region; R07.81 Pleurodynia; M25.561 Pain in right knee
CPT/HCPCS: 99214

== ENCOUNTER → 2023-08-30 09:19 | Outpatient (BNVA) | payer MEDICAID, SELFPAY | PROVIDERS: PCP Registered Nurse; Visit Provider Nurse Practitioner Family | DX: M25.562 Pain in left knee (principal); M25.561 Pain in right knee; M25.571 Pain in right ankle and joints of right foot; M50.30 Other cervical disc degeneration, unspecified cervical region; R07.81 Pleurodynia; G89.29 Other chronic pain | CPT/HCPCS: 99212 ==

== ENCOUNTER 2023-09-27 10:41 | Outpatient (REF) | payer MEDICAID, SELFPAY ==
--- NOTE | ~2023-09-27 | XR_ITS ---
EXAMINATION: 1. RADIOGRAPHS BILATERAL RIBS 2. RADIOGRAPHS RIGHT KNEE 3. RADIOGRAPHS LEFT KNEE CLINICAL INFORMATION: Right-sided rib pain. Bilateral knee pain. COMPARISON: Chest x-ray 02/07/2021 and bilateral knee radiographs 01/26/2023 TECHNIQUE: 4 views of the ribs and 3 views of each knee were obtained. FINDINGS: Bilateral RIBS: Cardiac silhouette is normal in size. The lungs are well aerated. There is no lobar consolidation. No pleural effusion or pneumothorax. No rib fracture identified. Right knee: No fracture or dislocation. No suprapatellar joint effusion. Joint spaces maintained. Tiny tricompartmental marginal osteophytes. No localized soft tissue swelling of the anterior knee. Left knee: No fracture or dislocation. No suprapatellar joint effusion. Joint spaces maintained. Tiny tricompartmental mental marginal osteophytes. No localized soft tissue swelling the anterior knee. Punctate metallic foreign body within the superficial tissues of the anterior knee. XR/XR knee RT 3V IMPRESSION: 1. No rib fracture. 2. No acute pulmonary pathology. 3. Minimal degenerative changes of both knees. 4. Punctate metallic foreign body within the superficial tissues of the anterior knee.
--- NOTE | ~2023-09-27 | XR_ITS ---
EXAMINATION: 1. RADIOGRAPHS BILATERAL RIBS 2. RADIOGRAPHS RIGHT KNEE 3. RADIOGRAPHS LEFT KNEE CLINICAL INFORMATION: Right-sided rib pain. Bilateral knee pain. COMPARISON: Chest x-ray 02/07/2021 and bilateral knee radiographs 01/26/2023 TECHNIQUE: 4 views of the ribs and 3 views of each knee were obtained. FINDINGS: Bilateral RIBS: Cardiac silhouette is normal in size. The lungs are well aerated. There is no lobar consolidation. No pleural effusion or pneumothorax. No rib fracture identified. Right knee: No fracture or dislocation. No suprapatellar joint effusion. Joint spaces maintained. Tiny tricompartmental marginal osteophytes. No localized soft tissue swelling of the anterior knee. Left knee: No fracture or dislocation. No suprapatellar joint effusion. Joint spaces maintained. Tiny tricompartmental mental marginal osteophytes. No localized soft tissue swelling the anterior knee. Punctate metallic foreign body within the superficial tissues of the anterior knee. XR/XR knee LT 3V IMPRESSION: 1. No rib fracture. 2. No acute pulmonary pathology. 3. Minimal degenerative changes of both knees. 4. Punctate metallic foreign body within the superficial tissues of the anterior knee.
--- NOTE | ~2023-09-27 | XR_ITS ---
EXAMINATION: 1. RADIOGRAPHS BILATERAL RIBS 2. RADIOGRAPHS RIGHT KNEE 3. RADIOGRAPHS LEFT KNEE CLINICAL INFORMATION: Right-sided rib pain. Bilateral knee pain. COMPARISON: Chest x-ray 02/07/2021 and bilateral knee radiographs 01/26/2023 TECHNIQUE: 4 views of the ribs and 3 views of each knee were obtained. FINDINGS: Bilateral RIBS: Cardiac silhouette is normal in size. The lungs are well aerated. There is no lobar consolidation. No pleural effusion or pneumothorax. No rib fracture identified. Right knee: No fracture or dislocation. No suprapatellar joint effusion. Joint spaces maintained. Tiny tricompartmental marginal osteophytes. No localized soft tissue swelling of the anterior knee. Left knee: No fracture or dislocation. No suprapatellar joint effusion. Joint spaces maintained. Tiny tricompartmental mental marginal osteophytes. No localized soft tissue swelling the anterior knee. Punctate metallic foreign body within the superficial tissues of the anterior knee. XR/XR ribs BI min 4V w CXR1V IMPRESSION: 1. No rib fracture. 2. No acute pulmonary pathology. 3. Minimal degenerative changes of both knees. 4. Punctate metallic foreign body within the superficial tissues of the anterior knee.
== END 2023-09-27 10:42 | disposition home or self-care (01) ==
LOC: HO.XRAY 10:41
PROVIDERS: PCP Internal Medicine; Visit Provider Nurse Practitioner Family
DX: M25.561 Pain in right knee (principal); M25.562 Pain in left knee; R07.81 Pleurodynia
CPT/HCPCS: 71111; 73562

== ENCOUNTER 2024-07-10 09:01 | Outpatient (REF) | payer MEDICAID, SELFPAY ==
[2024-07-10 09:43] LABS: Hematocrit 43.3 % (42.0-52.0); Hemoglobin 14.6 g/dl (14.0-18.0); Mean Corpuscular HGB Conc 33.7 g/dl (31.0-36.0); Mean Corpuscular Hemoglobin 29.1 pg (27.0-33.0); Mean Corpuscular Volume 86.3 fL (80.0-98.0); Mean Platelet Volume 9.8 fL (9.4-12.4); Platelet Count 252 X10*3/uL (160-400); Red Blood Count 5.02 X10*6/uL (4.60-5.80); Red Cell Distribution Width 13.6 % (11.0-16.0); White Blood Count 7.2 X10*3/uL (4.8-10.8)
[2024-07-10 10:45] LABS: Prostate Specific Antigen 1.13 ng/mL (<0.05-4.0)
[2024-07-15 22:07] LABS: Testosterone, Free 93.3 pg/mL (35.0-155.0); Testosterone, Total 438 ng/dL (250-1100)
== END 2024-07-10 09:02 | disposition home or self-care (01) ==
LOC: HO.LAB 09:01
PROVIDERS: PCP Internal Medicine; Visit Provider Urology
DX: E29.1 Testicular hypofunction (principal)
CPT/HCPCS: 36415; 84153; 84402; 84403; 85027

== ENCOUNTER 2024-07-17 13:12 | Outpatient (AMB) | payer MEDICAID, SELFPAY ==
--- NOTE | 2024-07-17 13:33 | A.OFFVIS_ITS ---
Intake Visit Reasons: 1Y Follow Up- PSA/Testo(Testo pending) Intake Note: Patient is Present for Follow Up PSA/Testo Results Urology Medication: Tadalafil Antibiotic Allergies:None Blood Thinners: Aspirin Recent LABS: 07/10/24 PSA: 1.13 Total Testosterone: 438 Melt Down Furnace Operator Required: Yes Melt Down Furnace Operator Language: Carroting Machine Operator Services: Melt Down Furnace Operator Present Accompanied by: Self / Same As Patient Allergies ketorolac [From TORADOL] Allergy (Intermediate, Verified 07/17/24 13:38) dizziness tramadol Allergy (Intermediate, Verified 07/17/24 13:38) dizziness Medication List - Last Reconciled 07/17/24 by Bronson Kim MD amlodipine 10 mg PO QAM ammonium lactate 12% appl topical DAILY PRN aspirin 1 tab PO DAILY atenolol 50 mg PO DAILY atorvastatin 40 mg PO BEDTIME blood pressure test kit-large As directed blood sugar diagnostic (FreeStyle Lite Strips) As directed bupropion HCl XL 300 mg PO QAM cholecalciferol (vitamin D3) 50 mcg PO QAM cyanocobalamin (vitamin B-12) 1,000 mcg PO QAM diclofenac sodium 1% topical duloxetine 60 mg PO QAM fluticasone propionate 50 mcg/actuation 1 spray intranasal QAM lancets (TRUEplus Lancets) As directed lisinopril 40 mg PO QAM naproxen 500 mg PO BID omeprazole 20 mg PO QAM prednisone 5 mg PO DIRECTED quetiapine (Seroquel) 100 mg PO BEDTIME quetiapine 200 mg PO BEDTIME tadalafil 5 mg PO DAILY 90 days HPI Comments Details: Miguel is a pleasant male. He is a patient of Dr. Reddy. He is seen for the following urologic conditions - lower urinary tract symptoms - hypogonadism - erectile dysfunction German translation provided by qualified medical services manager Yearly follow-up Testosterone improved with daily tadalafil Yearly follow-up Lower urinary tract symptoms Prior laser prostatectomy Ongoing urge and urge frequency Prior cystoscopy with bladder neck contracture 01/09 cystoscopy with open bladder neck Hypogonadism Labs - 10/11 T 342 F 61 PSA 0.6, 07/14 440 1.2 Erectile dysfunction in setting of diabetes Prior responsiveness to Viagra 100 mg Improvement with daily tadalafil PFSH Medical History Ankle pain, right Ankle pain, right Knee pain, right Knee pain, left Rib pain on right side Nocturia Surgical History History of prostate surgery (~2016) Family History Other CVD (cardiovascular disease) HTN (hypertension) Social History Household Members: Spouse Alcohol intake: former Patient Tobacco Use Status: Never used Tobacco e-Cigarette/Vaping Use: Never Used Current occupational status: unemployed Review of Systems Const Denies chills and Denies fever(s) Card Reports no additional complaints and Denies syncope Resp Denies cough GI Denies abdominal pain and Denies heartburn Reports as per HPI and Denies change in libido Neuro Denies syncope Psych Denies change in libido Endo Denies change in libido Physical Exam Const General: cooperative, healthy appearing, comfortable and no acute distress Orientation/consciousness: patient oriented x3 HEENT Face and sinus: Yes normal facial exam Mouth: moist mucous membranes Neck Neck: Yes normal visual inspection, Yes full ROM and Yes trachea midline Chest Chest palpation & inspection: normal inspection of the chest Resp Effort & Inspection: normal respiratory effort, able to speak in complete sentences and no respiratory distress GI Inspection: Yes normal to inspection Back/Spine/Pelvis Cervical Spine: normal cervical lordosis Thoracic/Lumbar Spine: thoracic and lumbar spine normal to inspection Skin General skin exam: no rashes or lesions noted Neuro General: patient oriented x3, gait normal, tone normal and moves all extremities Extrem General: Yes normal to inspection and Yes capillary refill normal Assessment & Plan Assessment & Plan (1) Bladder outlet obstruction: Code(s): N32.0 - Bladder-neck obstruction Category: Medical (2) Erectile dysfunction due to arterial insufficiency: Code(s): N52.01 - Erectile dysfunction due to arterial insufficiency Category: Medical (3) Nocturia: Code(s): R35.1 - Nocturia Category: Medical Plan 12 month follow-up Orders: Orders Testosterone, Free/Total 07/10/24 E29.1 - Testicular hypofunction Prostate Specific Antigen 07/10/24 E29.1 - Testicular hypofunction Complete Blood Count no Diff 07/10/24 E29.1 - Testicular hypofunction Patient Instructions: Imaging studies, laboratory and physical exam results were discussed and reviewed in detail. No major barriers to patient understanding were identified. An opportunity to ask questions regarding the treatment plan was provided. All questions were answered. The patient expressed understanding and agreement with the above treatment plan. The patient is aware they should contact our office by phone for worsening of their current condition or the appearance of new urologic symptoms. Compliance is encouraged with any medications and followup testing that is ordered. It is a privilege to participate in the urologic care of your patient. If you have any questions or concerns regarding treatment for the above conditions, or other urologic issues, please do not hesitate to contact me. The office telephone contact is [phone]. This note is constructed using voice recognition software. While every effort has been made to ensure accuracy clinical rehabilitation aide errors may have been included. Yours sincerely, Dr Bronson Kim MD, [facility] - Urology Providers of Expert, Compassionate Care for the Genitourinary System Coding Level of Care Code Est Pt Level 4 (25098) Diagnoses Bladder outlet obstruction N32.0 Erectile dysfunction due to arterial insufficiency N52.01 Nocturia R35.1
== END 2024-07-17 14:21 | disposition home or self-care (01) ==
PROVIDERS: PCP Internal Medicine; Visit Provider Urology
DX: N32.0 Bladder-neck obstruction (principal); N52.01 Erectile dysfunction due to arterial insufficiency; R35.1 Nocturia
CPT/HCPCS: 99214

== ENCOUNTER → 2024-07-17 13:12 | Outpatient (BNVA) | payer MEDICAID, SELFPAY | PROVIDERS: PCP Internal Medicine; Visit Provider Urology | DX: E29.1 Testicular hypofunction (principal); E11.69 Type 2 diabetes mellitus with other specified complication; N52.1 Erectile dysfunction due to diseases classified elsewhere | CPT/HCPCS: 99212 ==

== ENCOUNTER 2024-07-17 14:47 | Outpatient (REF) | payer MEDICAID, SELFPAY ==
[2024-07-17 16:52] LABS: Cholesterol 127 mg/dL (<200); HDL Cholesterol 32 mg/dL (>40); LDL Cholesterol Calculated 54 mg/dL (<100); Triglycerides 205 mg/dL (<150)
[2024-07-17 17:50] LABS: Reflex LDLD? No
[2024-07-29 11:18] LABS: Testosterone, Total 435 ng/dL (250-1100)
== END 2024-07-17 14:48 | disposition home or self-care (01) ==
LOC: HO.HHCL 14:47
PROVIDERS: Visit Provider Internal Medicine
DX: I10 Essential (primary) hypertension (principal); E29.1 Testicular hypofunction; R73.01 Impaired fasting glucose
CPT/HCPCS: 36415; 80061; 84402; 84403

== ENCOUNTER 2024-11-11 13:16 | Outpatient (AMB) | payer MEDICAID, SELFPAY ==
--- NOTE | 2024-11-11 13:28 | A.OFFVIS_ITS ---
Vital Signs 11/11/24 13:32 Height 5 ft 9 in Weight 219 lb 5.759 oz BMI 32.4 BP 132/80 Blood Pressure Location Lt brachial Position Sitting Pulse 65 Pulse Source Pulse Oximeter Pulse Oximetry (%) 97 Oxygen Delivery Method Room Air Intake Visit Reasons: Arthralgia Intake Note: Patient presents for Arthralgia. Revenue Stamper Required: Yes Revenue Stamper Language: Development Engineer Services: Revenue Stamper Offered & Declined Revenue Stamper Name: Coni Christian Information Interpreted: non-clinical & clinical Line Crew Supervisor: Line Crew Supervisor Present (Coni Christian) Accompanied by: Spouse Allergies ketorolac [From TORADOL] Allergy (Intermediate, Verified 11/11/24 13:32) dizziness tramadol Allergy (Intermediate, Verified 11/11/24 13:32) dizziness Medication List - Last Reconciled 11/11/24 by Marilyn Crooks MD amlodipine 10 mg PO QAM ammonium lactate 12% appl topical DAILY PRN aspirin 1 tab PO DAILY atenolol 50 mg PO DAILY atorvastatin 40 mg PO BEDTIME blood pressure test kit-large As directed blood sugar diagnostic (FreeStyle Lite Strips) As directed bupropion HCl XL 300 mg PO QAM cholecalciferol (vitamin D3) 50 mcg PO QAM cyanocobalamin (vitamin B-12) 1,000 mcg PO QAM diclofenac sodium 1% topical duloxetine 60 mg PO QAM fluticasone propionate 50 mcg/actuation 1 spray intranasal QAM lancets (TRUEplus Lancets) As directed lisinopril 40 mg PO QAM naproxen 500 mg PO BID omeprazole 20 mg PO QAM quetiapine (Seroquel) 100 mg PO BEDTIME quetiapine 200 mg PO BEDTIME tadalafil 5 mg PO DAILY 90 days HPI Comments Details: Patient is a 59-year-old Upper Sorbian-speaking male with hypertension, and hyperlipidemia who presents for follow up of polyarthralgias Interval History: Patient last seen 08/30/2023 with Nancy Levy. At that time he was reporting chronic cervical neck pain, back pain, knee pain and bilateral ankle pain. He has a history of degenerative disc disease in the C-spine and follows with pain management for this. His last MRI of the C-spine was 05/11/2022 and pain management ordered a 10s unit to help him with his lower back pain. His ankle pain was his most bothersome issue at that time. There was some swelling noted to the bilateral ankles and so he was given a short course of prednisone. Today Patient complains of neck pain, back pain, knee pain and ankle pain. Pain does not have a specific time where it is worse it occurs throughout the day No associated swelling Stiffness lasting 20-30 minutes in the morning Rheumatologic History: Follows up for polyarticular osteoarthritis and degenerative joint disease Current Rheumatology Medication(s): [facility] Medical History Ankle pain, right Ankle pain, right Knee pain, right Knee pain, left Rib pain on right side Nocturia Surgical History History of prostate surgery (~2016) Family History Other CVD (cardiovascular disease) HTN (hypertension) Social History Household Members: Spouse Alcohol intake: former Patient Tobacco Use Status: Never used Tobacco e-Cigarette/Vaping Use: Never Used Current occupational status: unemployed Review of Systems Const Details: Review of Systems Constitutional: Denies fever, chills, weight loss ENT: Denies vision changes, eye pain or eye redness, dental caries, dry mouth GI: Denies nausea, vomiting, diarrhea, abdominal pain, change in BM Pulm: Denies SOB, ONEIL, hemoptysis, wheezing Cards: Denies chest pain, palpitations Skin: Denies Raynaud's, rash, nail changes, photosensitivity, RECREATION FACILITY ATTENDANT: Denies headaches, weakness, paresthesias, recurrent falls MSK: as per HPI All other systems reviewed and are unremarkable except noted above Physical Exam Vital Signs: Last Vital Signs Pulse 65 11/11/24 13:32 BP 132/80 11/11/24 13:32 Pulse Ox 97 11/11/24 13:32 Oxygen Delivery Method Room Air 11/11/24 13:32 BMI result Body Mass Index 32.4 Vital signs reviewed Physical Examination CONSTITUITIONAL Patient alert and cooperative. Well appearing and in no apparent painful distress HEENT Conjunctiva and sclera clear. ?Pupils equal round and reactive to light. ?No lymphadenopathy. ? CHEST/RESPIRATORY SYSTEM Normal respiratory effort and able to speak in complete sentences. ?Clear to auscultation bilaterally. ?No crackles, rales, rhonchi, wheezes heard. CARDIAC SYSTEM Regular rate and rhythm. ?S1 and S2 heard no murmurs. ?Radial pulses intact bilaterally MSK Hands: ?Good lathe sander strength bilaterally. No deformities noted. ?No synovitis noted to the MCPs, PIPs or DIPs. ?No tenderness to palpation of these joints. Wrists: ?Full range of motion at the wrists without pain. ?No tenderness to palpation or synovitis noted to the wrists. Elbows: Full range of motion without pain. No tenderness, weakness, swelling, increased warmth or erythema. Shoulders: Full range of motion without pain. No tenderness, weakness, swelling, increased warmth or erythema. Hips: Full range of motion without pain. Hip bursa: No tenderness to palpation Knees: ?Full range of motion. ?No tenderness, swelling, increased warmth or erythema.? Crepitations palpated Ankles: Full range of motion. ?Mild tenderness to palpation of the ankle joint no swelling noted. Feet: ?Negative squeeze test. ?No tenderness to palpation or swelling of the MTPs. Tender points:?No tenderness to palpation of the bilateral trapezius, supraspinatus, greater trochanters, anterior costochondral junctions, bilateral gluteal areas, bilateral suboccipital muscle insertions SKIN Skin intact without rashes. Results Reviewed Results Reviewed: Laboratory Tests 01/22/23 07/10/24 11:05 09:22 WBC 7.2 RBC 5.02 Hgb 14.6 Hct 43.3 Plt Count 252 ESR 10 XR Bilateral Knees 09/2023 FINDINGS: Right knee: No fracture or dislocation. No suprapatellar joint effusion. Joint spaces maintained. Tiny tricompartmental marginal osteophytes. No localized soft tissue swelling of the anterior knee. Left knee: No fracture or dislocation. No suprapatellar joint effusion. Joint spaces maintained. Tiny tricompartmental mental marginal osteophytes. No localized soft tissue swelling the anterior knee. Punctate metallic foreign body within the superficial tissues of the anterior knee. Assessment & Plan Assessment & Plan (1) Polyosteoarthritis: Code(s): M15.9 - Polyosteoarthritis, unspecified Category: Medical Qualifiers: Osteoarthritis type: primary Qualified Code(s): M15.0 - Primary generalized (osteo)arthritis Plan: #Polyarthralgias 2/2 polyosteoarthritis Patient is a 59-year-old male with polyarthralgias secondary to polyarticular osteoarthritis. With respect to his knees I recommended that he do topical diclofenac 4 times a day. He can receive gel injections in the future if the pain worsens. With respect to his bilateral ankles there was no obvious evidence of any degenerative disease. I recommended topical diclofenac as well as Harry-William for his other muscular issues. He was also complaining of sciatica type pain with pain running down his bilateral lower extremities. Recommended gabapentin for this. Plan - Gabapentin 100-300mg tablets at night - Topical diclofenac to the bilateral knees 4 times a day - Bengay for muscle tension - Consider gel injections in the future - RTC 1 year or sooner Plan I spent 20 minutes reviewing the record and labs, taking a history, examining the patient, discussing the treatment plan and documenting in the medical record Medications: New camphor-methyl salicyl-menthol 4-30-10 % (Bengay Ultra Strength) 1 appl topical BID-QID PRN 113 grams 4RF muscle pain M15.9 - Polyosteoarthritis, unspecified diclofenac sodium 1% (Arthritis Pain (diclofenac)) apply to bilateral knees 4 times a day 4 grams topical QID 100 grams 4RF M15.9 - Polyosteoarthritis, unspecified gabapentin Please take 1 to 3 tablets at bedtime as tolerated 300 mg (3 x 100 mg) PO BEDTIME 90 days 270 caps 2RF M15.9 - Polyosteoarthritis, unspecified Discontinued prednisone Take 3 tablets per day for 7 days, 2 tablets per day x 7 days, 1 tablet x 7 days and stop. Discontinued Reason: Doctor's Order 5 mg PO DIRECTED 90 tabs 0RF Coding Level of Care Code Est Pt Level 3 (19230) Diagnoses Primary osteoarthritis involving multiple joints M15.0 Osteoarthritis type: primary
[2024-11-11 13:32] VITALS: BP 132/80; PULSE 65; O2SAT 97; BMI 32.4
--- OUTSIDE RECORDS SUMMARY | 2024-11-11 15:23 | XMS_ITS | Encounter Summary ---
Author Organization [employer] Address [address] [place] [address] Care Team Providers Care Industrial Custodian Name Role Phone Sunita Reddy MD Primary Care Provider + Tera Mills PharmD Unavailable [phone] Encounter Details Date Type Department Care Team (Late st Contact Info) Description 09/27/2023 Abstract [facility] [address] [place], [place] [phone] Aditi Mildred [address] [place], [place] [phone] Social History Tobacco Use Types Packs/Day Years Used Date Smoking Tobacco: Never Smokeless Tobacco: Never Alcohol Use Standard Drinks/Week Comments Never 0 (1 standard drink = 0.6 oz pur e alcohol) Depression Answer Date Recorded Patient Health Questionnaire-9 Score 0 07/23/2023 Housing Stability Answer Date Recorded What is your housing situation today? I have ramiro saunders 08/06/[address] you li ve. Do you have problems with any of the following? None of the above 08/06/2023 Food Insecurity Answer Date Recorded Within the past 12 months, y ou worried that your food would run out before you got money to buy more: Never True 08/06/2023 Within the past 12 months,th e food you bought just didn't last and you didn't have enough money to get more: Never True Transportation Answer Date Recorded In the past 12 months, has l ack of transportation kept you from medical appts, meetings, work or from getting things needed for daily living? No 08/06/2023 Utilities Answer Date Recorded In the past 12 months, has t he [employer], gas, oil or water company threatened to shut off services in your home? No 08/06/2023 Depression Answer Date Recorded Patient Health Questionnaire-2 Score 0 07/23/2023 Sex and Gender Information Value Date Recorded Sex Assigned at Male 08/20/2022 10:29 AM EDT Legal Sex Male 10:29 AM EDT Gender Identity Male 08/20/2022 10:29 AM EDT Sexual Orientation Choose not to disclose 2021 10:29 AM EDT documented as of this encounter Plan of Treatment Not on file documented as of this encounter Goals Goal Patient Goal Type Associated Problems Recent Progress Patient-Stated? Author Blood Pressure < 140/90 Blood Pressure 134/84( 024 1:46 PM EDT) No Tera Mills PharmD Record your blood pressure once per day Blood Pressure No Tera Mills PharmD documented as of this encounter Visit Diagnoses Not on filedocumented in this encounter Additional Health Concerns Assessment Noted Time PHQ-9 Depression Total Score: 0 07/23/20 23 10:17 AM EDT documented as of this encounter Care Teams Industrial Custodian Relationship Specialty Start Date End Date Sunita Reddy MD [address] [place] [address] PCP - General Family Medicine 07/14/19 Tera Mills, KelyD [address] [place] [address] Pharmacist Internal Medicine 09/25/22 08/16/24 documented as of this encounter
--- OUTSIDE RECORDS SUMMARY | 2024-11-11 15:23 | XMS_ITS | Encounter Summary ---
Author Organization [employer] Address [address] [place] [address] Care Team Providers Care Health Researcher Name Role Phone Sunita Reddy MD Primary Care Provider + Tera Mills PharmD Unavailable [phone] Encounter Details Date Type Department Care Team ([facility] st Contact Info) Description 07/21/2024 Orders Only [facility] [address] [place], [place] [phone] Sunita Reddy MD [address] [place], [place] [phone] ASCVD (arteriosclerotic cardiovascular disease) (Primary Dx) Social History Tobacco Use Types Packs/Day Years [...] the past 12 months, has t he electric, gas, oil or water company threatened to [...] documented as of this encounter Visit Diagnoses Diagnosis ASCVD (arteriosclerotic cardiovascular disease)- Primary Unspecified cardiovascular disease documented in this encounter Additional Health Concerns Assessment Noted Time PHQ-9 Depression Total Score: 0 07/23/20 23 10:17 AM EDT documented as of this encounter Care Teams Health Researcher Relationship Specialty Start Date End Date Sunita Reddy MD [address] [place] [address] PCP - General Family Medicine 07/14/19 Tera Mills PharmD [address] [place] [address] Pharmacist Internal Medicine 09/25/22 08/16/24 documented as of this encounter
--- OUTSIDE RECORDS SUMMARY | 2024-11-11 15:23 | XMS_ITS | Encounter Summary ---
Author Organization [employer] [facility] Address [address] [place] [address] Care Team Providers Care Playback Operator Name Role Phone Sunita Reddy MD Primary Care Provider + Tera Mills PharmD Unavailable [phone] Encounter Details Date Type Department Care Team (Latest Contact Info) Description 07/27/2019 Abstract [facility] CONVERSIONS Dental, Provider, DDS Social History Tobacco Use Types Packs/Day Years Used Date Smoking Tobacco: Never Assessed Sex and Gender Information Value Date Recorded Sex Assigned at Male 08/20/2022 10:29 AM EDT Legal Sex Male 10:29 AM EDT Gender Identity Male 08/20/2022 10:29 AM EDT Sexual Orientation Choose not to disclose 2021 10:29 AM EDT documented as of this encounter Plan of Treatment Not on file documented as of this encounter Visit Diagnoses Not on filedocumented in this encounter Care Teams Playback Operator Relationship Specialty Start Date End Date Sunita Reddy MD [address] [place] [address] PCP - General Family Medicine 07/14/19 Tera Mills, PharmD [address] [place] [address] Pharmacist Internal Medicine 09/25/22 08/16/24 documented as of this encounter
--- OUTSIDE RECORDS SUMMARY | 2024-11-11 15:23 | XMS_ITS | Encounter Summary ---
Author Organization [employer] Address [address] [place] [address] Care Team Providers Care Business Dean Name Role Phone Sunita Reddy MD Primary Care Provider + Reason for Visit * Reason Onset Date Comments Appointment Request 11/02/2024 Encounter Details Date Type Department Care Team ([facility] Contact Info) Description 11/02/2024 Telephone [facility] [address] [place], [place] [phone] Sunita Reddy MD [address] [place], [place] [phone] Appointment Request Social History Tobacco Use Types Packs/Day Years [...] AM EDT documented as of this encounter Miscellaneous Notes * Telephone Encounter - Keira Ashley [place] - 11/02/2024 10:13 AM EST Tc to pt to R/S tele apt with PCP. Appt has been rescheduled to 11/02/24 at 3:15 pm. documented in this encounter Plan of Treatment Not on [...] documented as of this encounter Care Teams Business Dean Relationship Specialty Start Date End Date Sunita Reddy MD [address] [place] [id number] PCP - General Family Medicine 07/14/19 documented as of this encounter
--- OUTSIDE RECORDS SUMMARY | 2024-11-11 15:23 | XMS_ITS | Clinical Summary ---
Author Organization [employer] Address [address] [facility] [address] [place] [address] Care Team Providers Care Classroom Monitor Name Role Phone Sunita Reddy MD Primary Care Provider + Allergies Active Allergy Reactions Criticality Noted Date Comments Nifedipine Palpitations,Headac he,Dizziness Low 10/30/2022 Tolerated amlodipine Ketorolac Tromethamine 02/28/2023 Tramadol Dizziness Medium 08/14/2016 Other reaction(s): Dizziness Medications ammonium lactate (Amlactin) 12 % cream Use topically on both feet daily as needed 2 Active DULoxetine (Cymbalta) [address] capsule Take 1 capsule by mouth 1 (one) time each day at the same time. Active Blood Pressure Monitoring (Omron 3 Series BP Monitor) deviceIndications: Essential hypertension Use daily as directed 1 each 3 Active tadalafil (Cialis) 5 MG tablet TAKE ONE TABLET BY MOUTH EVERY DAY FOR BLADDER OUTLET 3 Active TRUEplus Lancets 33G misc TEST BLOOD SUGAR EVERY DAY 100 each 11 3 Active fluticasone (Flonase) 50 MCG/ACT nasal sprayIndications:E pistaxis USE 1 SPRAY IN EACH NOSTRIL EVERY MORNING 48 g 4 Active FREESTYLE LITE test stripIndications:I FG (impaired fasting glucose) TEST BLOOD SUGAR TWICE DAILY 50 strip 11 4 Active omeprazole (PriLOSEC) [address] capsuleIndications :Gastroesophageal reflux disease, unspecified whether esophagitis present TAKE 1 CAPSULE BY MOUTH EVERY MORNING BEFORE BREAKFAST 90 capsule 3 4 Active amLODIPine (Norvasc) 10 MG tabletIndications: Essential hypertension TAKE 1 TABLET BY MOUTH EVERY MORNING 90 tablet 1 4 Active atenolol (Tenormin) 50 MG tabletIndications: Primary hypertension TAKE 1 TABLET BY MOUTH EVERY MORNING 90 tablet 1 4 Active atorvastatin (Lipitor) 40 MG tabletIndications: Mixed hyperlipidemia TAKE 1 TABLET BY MOUTH AT BEDTIME 90 tablet 1 4 Active D3 Super Strength 50 MCG (2000 UT) capsuleIndications :Vitamin D deficiency TAKE 1 CAPSULE BY MOUTH EVERY MORNING 90 capsule 1 4 Active lisinopril 40 MG tabletIndications: Primary hypertension TAKE 1 TABLET BY MOUTH EVERY MORNING 90 tablet 1 4 Active cyanocobalamin (Vitamin B-12) 1000 MCG tabletIndications: Vitamin B deficiency, unspecified TAKE 1 TABLET BY MOUTH EVERY MORNING 90 tablet 3 4 Active naproxen (Naprosyn) 500 MG tablet TAKE 1 TABLET BY MOUTH TWICE DAILY 60 tablet 3 4 Active buPROPion XL (Wellbutrin XL) 300 MG 24 hr tablet Take 300 mg by mouth in the morning. 4 Active QUEtiapine (SEROquel) 200 MG tablet Take 200 mg by mouth at bedtime. 4 Active Active Problems Problem Noted Date Diagnosed Date Viral upper respiratory tract infection 07/23/20 Assessment & Plan (07/23/2024 12:36 PM EDT): Rest (sleep at least 8 hours a night). Hydrate with plenty of water (avoid caffeine and alcohol). Use saline nose drops to loosen mucus + Flonase daily. Take Acetaminophen (Tylenol??)/Ibuprofen as needed to reduce fever, headache, body aches or discomfort Gargle with salt water and use throat sprays/lozenges for throat pain. Use heated, humidified air. If you do not have a humidifier, take hot showers. Advised to get Covid tested and call back prn positive test results. ASCVD (arteriosclerotic cardiovascular disease) 07/21/2024 Neck pain 05/18/2024 Cervical radiculopathy 05/18/2024 Assessment & Plan (07/23/2024 12:41 PM EDT): Stable, advised to go to acupuncture clinic. Continue Naproxen prn and stretching exercises. He declined referral for epidural injections, follow up with me prn. Assessment & Plan (05/18/2024 5:01 PM EDT): I gave him stretching neck exercises Continue Naproxen prn, caution with nephropathy, GI toxicity. [facility] acupuncture clinic He would not want [place] referred to pain clinic for epidural injection at this time, referral not done today. FU with rheumatology and FU with me in 2m Dental calculus 08/16/2023 Periodontal disease 08/16/2023 Generalized gingival recession, minimal 08/16/20 23 Epistaxis 07/23/2023 Assessment & Plan (07/23/2023 11:24 AM EDT): Secondary to URI Use Flonase PRN Counseled to treat with gauze and nasal saline Re-consult PRN Dizziness 07/23/2023 Assessment & Plan (07/23/2023 11:22 AM EDT): Most likely related to recent bleeding Encourage increased hydration, and check BP at home Will check TFT's today Stress incontinence of urine 02/28/2023 Assessment & Plan (02/28/2023 1:01 PM EDT): Pt to be followed by urologist, will obtain urulogy notes for next appointent Dermoid cyst 02/28/2023 Assessment & Plan (02/28/2023 1:00 PM EDT): On upper back, minimally symptomatic at this time Discussed with pt about condition, I gave him information Fu in 3 months and decide POC Abnormal TSH 02/27/2023 Assessment & Plan (02/28/2023 1:00 PM EDT): Labs on nov 2022 showed high TSH Repeat TFTs in 3 months and fu with me Calcaneal spur 09/25/2022 Edema of lower extremity 09/25/2022 IFG (impaired fasting glucose) 09/25/2022 Assessment & Plan (05/18/2024 5:02 PM EDT): I have discussed with patient regarding increasing physicial activity and decrease calorie intake I'll check FBS with next set of labs. To check RBS at next visit. FU 6m Assessment & Plan (11/29/2022 2:42 PM EST): I have discussed with patient regarding increasing physicial activity and decrease calorie intake I'll check FBS with next set of labs. To check RBS at next visit. FU with me next visit Lumbar spondylosis 09/25/2022 Assessment & Plan (11/02/2024 5:03 PM EST): Continues with limitations for most ADLs and ambulation. Advised to continue Tylenol, Naproxen and heat to affected area. Advised to attend acupuncture on weekly basis. Patient will call back PRN to refer to pain clinic if symptoms do not improve. Assessment & Plan (05/18/2024 5:02 PM EDT): Declined PT and wouldn't go to epidural injection. MRI not sent Take Naproxen prn, caution with renal and GI toxicity. [facility] acupuncture clinic and stretching exercises. FU with me in 2m Assessment & Plan (07/23/2023 11:35 AM EDT): S/p lumbar spine surgery, taking naproxen Use diclofenac He has gone to PT multiple times, declines further referral He has been to acupuncture and pain clinic and can fu with them Decline referral to new pain management clinic Assessment & Plan (11/29/2022 2:42 PM EST): Pt has low back pain exacerbation today. Use naproxen or tylenol PRN. Male hypogonadism 09/25/2022 Assessment & Plan (05/18/2024 5:03 PM EDT): Reportedly used testosterone rx by last year, no recent rx in his profile. Order testosterone levels and fu in 2m ED doing well on Cialis. Assessment & Plan (07/23/2023 11:26 AM EDT): Recent testosterone levels were low, he was reportedly restarted on testosterone replacement therapy by urologist I will obtain urology notes Mixed hyperlipidemia 09/25/2022 Assessment & Plan (07/23/2024 12:40 PM EDT): Continue on Atorvastatin 40 mg and repeat lipids in 6 months. Recommended moderate amount of exercise and increase consumption of fruit, vegetables, fish and high fiber foods. Should decrease consumption of highly saturated fats or trans fats. Onycholysis 09/25/2022 Peripheral sensory neuropathy 09/25/2022 Pleuritic pain 09/25/2022 Tarsal tunnel syndrome of left side 09/25/2022 Need for home health care 09/25/2022 Gastroesophageal reflux disease 03/11/2019 Pure hypercholesterolemia 03/11/2019 Cobalamin deficiency 01/15/2019 Prediabetes 01/15/2019 Vitamin D deficiency 01/15/2019 Paresthesia of foot 11/21/2018 Urge incontinence of urine 11/21/2018 Vasculogenic erectile dysfunction 07/23/2018 Assessment & Plan (07/23/2024 12:42 PM EDT): Followed by doing well on Cialis. No need for testosterone injections any longer (prescribed by ). Advised regarding tight control of HTN and HLD. Essential hypertension 08/23/2017 Assessment & Plan (11/02/2024 5:05 PM EST): BP seems to be at goal. He was seen at the [facility] clinic and discharged as he achieved the BP goal. Continue Amlodipine, Atenolol and Lisinopril. FU in 5 months. Advised to have COVID and Influenza immunizations at earliest convenience. Assessment & Plan (02/28/2023 1:07 PM EDT): Controlled. Continue atenolol 50 mg + lisinopril 40 + amlodipine 10mg and continue fu with [facility] clinic Counseled re low salt diet/increase moderate physical activity. Check home BP BIW and prn CP/PAULINO/ONEIL Non smoking patient. Assessment & Plan (11/29/2022 2:43 PM EST): Uncontrolled. Amlodipine had been increased at hypertension clinic, awaiting for med boxes next week. FU BP at hypertension clinic next week and with me next month. Counseled re low salt diet/increase moderate physical activity. Check home BP BIW and prn CP/PAULINO/ONEIL Non smoking patient. Continue atenolol 50 mg + lisinporil 40 mg and amlodipine as above. Assessment & Plan (10/09/2022 5:16 PM EST): Borderline controlled. Continue lisinopril 40mg + Atenolol 50mg/d Nifedipine to be discontinued, patient not getting it At our pharmacy with medboxes, will call to [facility] [place] [facility] sent. Counseled re low salt diet/increase moderate physical activity. Check home BP BIW and prn CP/PAULINO/ONEIL Non smoking patient. FU w CDTM next week, get labs done (ordered via NG last month) Low back pain 08/23/2017 Mood disorder 08/23/2017 Assessment & Plan (11/02/2024 5:04 PM EST): Patient has MDD, seen by psychiatrist. He feels safe at home, has support and help for ADLs. Medication management per psychiatrist. Osteoarthritis of multiple joints 08/23/2017 Blood in urine 08/23/2017 Encounters Date Type Department Care Team Description 11/02/2024 3:30 PM EST Telemedicine [facility] [address] [place] [phone] Sunita Reddy MD Essential hypertension (Primary Dx); Lumbar spondylosis; Mood disorder ([facility]/HCC) 11/02/2024 Travel 11/02/2024 Telephone [facility] [address] [place] [address] Sunita Reddy MD Appointment Request 10/29/2024 Telephone [facility] [address] [place], [place] [phone] Sunita Reddy MD Appointment Request 10/29/2024 Telephone [facility] [address] [place] [address] Sunita Reddy MD No Show 09/01/2024 Telephone [facility] [address] [place] [address] Sunita Reddy MD October recall 08/17/2024 2:00 PM EDT Telemedicine [facility] [address] [place] [address] Tera Mills, PharmD Essential hypertension (Primary Dx); Mixed hyperlipidemia 08/11/2024 Telephone [facility] [address] [place] [address] Sunita Reddy MD from Last 3 Months Immunizations Name Administration Dates Next Due Influenza injectable quadriv alent preservative free 08/07/2022,12/12/2021 Pfizer Covid-19 Vaccine 12+ 11/13/2021,,02/21/2021 Social History Tobacco Use Types Packs/Day Years Used Date Smoking Tobacco: Never Smokeless Tobacco: Never Tobacco Cessation:Counseling Given: Not Answered Alcohol Use Standard Drinks/Week Comments Never 0 [...] not to disclose 2021 10:29 AM EDT Last Filed Vital Signs Vital Sign Reading Time Taken Comments Blood Pressure 134/84 08/17/2024 1:46 PM EDT Omron (Televisit) Pulse 72 08/17/2024 1:46 PM EDT Temperature 36.4 ??C (97.5 ??F) 05/18/2024 3 :43 PM EDT Respiratory Rate 15 05/18/2024 3:43 PM EDT Oxygen Saturation 98% 05/18/2024 3:4 3 PM EDT Inhaled Oxygen Concentration - - Weight 96.3 kg (212 lb 3.2 oz) 05/18/2024 3:43 PM EDT Height 172.7 cm (5' 8 ) 05/18/2024 3:43 PM EDT Body Mass Index 32.26 05/18/2024 3:43 PM EDT Plan of Treatment Health Maintenance Due Date Last Done Comments CT Colonography 1966 Colonoscopy 1966 Colorectal Cancer Screening 1966 FIT DNA/Cologuard 1966 FIT 1966 FOBT 1966 Sigmoidoscopy 1966 Alcohol/Substance Use Screening 1978 DTaP/Tdap/Td Vaccines (1 - Tdap) 1985 Hepatitis B Vaccines (1 of 3 - 19+ 3-dose series) 1985 Zoster Vaccines (1 of 2) 2016 Dental Oral Exam 02/14/2024 08/14/2023, 04/2019, 12/11/2018, Additional history exists Dental Prophylaxis 02/16/2024 08/16/2023, 1 , 12/11/2018, Additional history exists COVID-19 Vaccine ( season) 2024 11/13/2021, 03/14/2021, 02/21/2021 Influenza Vaccine (#1) 2024 08/07/2022, 2021 Depression Screening 07/23/2024 07/23/2023, 07/23/20 23 SDOH Screening 07/23/2024 07/23/2023 Dental X-Ray: Bitewings 08/15/2024 08/14/20 23, 07/27/2019, 05/16/2018, Additional history exists Diabetes: Hemoglobin A1C 05/18/2025 024, 11/26/2022, 09/29/2020 Tobacco Screening 06/01/2025 06/01/2024 Dental X-Ray: Full Mouth 08/15/2026 08/14/2023, 0 05/2016 Lipid Panel 07/17/2029 07/17/2024, 1012/2021, 06/10/2021, Additional history exists RSV Patients and Patients Aged 60 years or older (1 - 1-dose 75+ series) 2041 Hepatitis C Screening Completed 12/12/2021 HIV Screening Completed 08/30/2022 HIB Vaccines Aged Out No longer eligi ble based on patient's age to complete this topic HPV Vaccines Aged Out No longer eligi ble based on patient's age to complete this topic Hepatitis A Vaccines Aged Out No long er eligible based on patient's age to complete this topic IPV Vaccines Aged Out No longer eligi ble based on patient's age to complete this topic Meningococcal Vaccine Aged Out No pola issa eligible based on patient's age to complete this topic Pneumococcal Vaccine: Pediatrics (0 to 5 Years) and At-Risk Patients (6 to 64 Years) Aged Out No longer eligible based on patient's age to complete this topic RSV under 20 months Aged Out No longe r eligible based on patient's age to complete this topic Rotavirus Vaccines Aged Out No longer eligible based on patient's age to complete this topic Goals Goal Patient Goal Type Associated Problems Recent Progress Patient-Stated? Author Blood Pressure < 140/90 Blood Pressure 134/84( 024 1:46 PM EDT) No Tera Mills, PharmD Record your blood pressure once per day Blood Pressure No Tera Mills, Joann Procedures Procedure Name Priority Date/Time Associated Diagnosis Comments LIPID PANEL, STANDARD Routine 07/17/2024 2:50 PM EDT Essential hypertension POCT GLYCATED HEMOGLOBIN, TOTAL Routine 05/18/2024 3:45 PM EDT IFG (impaired fasting glucose) PROPHYLAXIS - ADULT Routine 08/16/2023 1 1:00 AM EDT Dental calculus Periodontal disease DIAGNOSTIC - DIAGNOSTIC IMAGING - INTRAORAL - COMPREHENSIVE SERIES OF RADIOGRAPHIC IMAGES Routine 08/14/2023 10:30 AM EDT PERIODIC ORAL EVALUATION - ESTABLISHED PATIENT Routine 08/14/2023 10:30 AM EDT HIV 1/2 ANTIGEN/ANTIBODY, FOURTH GENERATION W/RFL Routine 08/30/2022 9:40 AM EST ZZZ HISTORICAL HEPATITIS C AB W/REFL TO HCV RNA, QN, PCR Routine 12/12/2021 10:43 AM EST from Last 3 Months or Most Recently Relevant to Health Maintenance Results * (ABNORMAL) Lipid Panel, Standard (07/17/2024 2:50 PM EDT) Triglycerides 205(H) <150 mg/dL [facility] Comment:Desirable Triglyceri de: less than 150 mg/dLBorderline High Triglyceride 150-199 mg/dLHigh Triglyceride: 200-499 mg/dLVery High Triglyceride: greater than or equal to 5OO mg/dL Cholesterol 127 <200 mg/dL [facility] Comment:Desirable Cholestero l: less than 200 mg/dLBorderline High Cholesterol: 200-239 mg/dLHigh Cholesterol: greater than 239 mg/dL LDL Cholesterol Calculated 54 <100 mg/dL [facility] Comment:Desirable LDL: less than 100 mg/dLNear Optimal/Above Optimal LDL: 110- 129 mg/dLBorderline High LDL: 130-159 mg/dLHigh LDL: 160-189 mg/dLVery High LDL: greater than or equal to 190 mg/dL HDL Cholesterol 32(L) >40 mg/dL [facility] Comment:Desirable HDL: great er than 40 mg/dL Note: This HDL assay may give artificially low results in patients with liver disease. Blood Venous blood specimen / Unknown 07/17/2024 2:50 PM EDT 07/17/2024 4:25 PM EDT us Sunita Reddy MD LAB BLOOD ORDERABLES Fin al Result [facility] [address] [place] [address] [phone] * POCT HGB A1C (05/18/2024 3:45 PM EDT) [facility] Hemoglobin A1C 5.9 4.0 - 6.0 % QC Media Lot # [id number] Lot# Expiration Date [id number] Blood 05/18/2024 3:45 PM EDT Sunita Reddy MD POINT OF CARE TEST ENTER /EDIT ORDERABLES Final Result * HIV 1/2 ANTIGEN/ANTIBODY,FOURTH GENERATION W/RFL (08/30/2022 9:40 AM EST) [facility] HIV-1/2 ANTIGEN AND ANTIBODIES, 4TH GENERATION W/ REFLEX NON-REACT CORNELIUS NON-REACT CORNELIUS [facility] Comment: HIV-1 antigen and HIV-1/HIV-2 antibodies were not detected. There is no laboratory evidence of HIV infection. ?? PLEASE NOTE: This information has been disclosed to you from records whose confidentiality may be protected by state law. ??If your state requires such protection, then the state law prohibits you from making any further disclosure of the information without the specific written consent of the person to whom it pertains, or as otherwise permitted by law. A general authorization for the release of medical or other information is NOT sufficient for this purpose. ? For additional information please refer to http://education.Sakti3.Delta ID/faq/AUI528 (This link is being provided for informational/ educational purposes only.) ? The performance of this assay has not been clinically validated in patients less than 2 years old. ?? 08/30/2022 9:40 AM EST Sunita Reddy MD LAB BLOOD ORDERABLES Fin al Result [facility] * HEPATITIS C AB W/REFL TO HCV RNA, QN, PCR (12/12/2021 10:43 AM EST) HEPATITIS C ANTIBODY NON-REACT CORNELIUS NON-REACT CORNELIUS [facility] INDEX 0.01 <1.00 [facility] Comment: ?? HCV antibody was non-reactive. There is no laboratory ?? evidence of HCV infection. ?? In most cases, no further action is required. However, if recent HCV exposure is suspected, a test for HCV RNA (test code 53717) is suggested. ?? For additional information please refer to http://Xochitl (So-Shee) Gold mines.KE2 Therm Solutions/faq/LEH65w1 (This link is being provided for informational/ educational purposes only.) ?? 12/12/2021 10:4 3 AM EST Sunita Reddy MD HISTORICAL/NON ORDERABLE LABS Final Result [facility] [address] from Last 3 Months or Most Recently Relevant to Health Maintenance Insurance C3 [facility] MEDICAID STAND ADULT Care Teams Classroom Monitor Relationship Specialty Start Date End Date Sunita Reddy MD [address] [place] [phone] PCP - General Family Medicine 07/14/19
--- OUTSIDE RECORDS SUMMARY | 2024-11-11 15:23 | XMS_ITS | Encounter Summary ---
Author Organization [employer] Address [address] [facility] 7t [place] [address] Care Team Providers Care Messenger Floorperson Name Role Phone Sunita Reddy MD Primary Care Provider + Tera Mills PharmD Unavailable [phone] Reason for Visit * Reason Onset Date Comments comp waitlist 07/25/2023 Encounter Details Date Type Department Care Team ([facility] st Contact Info) Description 07/25/2023 Telephone [facility] [address] [place], [place] [phone] Kd Mclain DDS [address] [place] [address] comp waitlist Social History Tobacco Use Types Packs/Day Years Used Date Smoking Tobacco: Never Smokeless Tobacco: Never Alcohol Use Standard Drinks/Week Comments Never 0 (1 standard drink = 0.6 oz pur e alcohol) Depression Answer Date Recorded Patient Health Questionnaire-9 Score 0 07/23/2023 Housing Stability Answer Date Recorded What is your housing situation today? I have ramiro saunders 07/29/[address] you li ve. Do you have problems with any of the following? None of the above 07/29/2023 Food Insecurity Answer Date Recorded Within the past 12 months, y ou worried that your food would run out before you got money to buy more: Never True 07/29/2023 Within the past 12 months,th e food you bought just didn't last and you didn't have enough money to get more: Never True 06/2023 Transportation Answer Date Recorded In the past 12 months, has l ack of transportation kept you from medical appts, meetings, work or from getting things needed for daily living? No 07/29/2023 Utilities Answer Date Recorded In the past 12 months, has t he electric, gas, oil or water company threatened to shut off services in your home? No 07/29/2023 Depression Answer Date Recorded Patient Health Questionnaire-2 Score 0 07/23/2023 Sex and Gender Information Value Date Recorded Sex Assigned at Male 08/20/2022 10:29 AM EDT Legal Sex Male 10:29 AM EDT Gender Identity Male 08/20/2022 10:29 AM EDT Sexual Orientation Choose not to disclose 2021 10:29 AM EDT documented as of this encounter Miscellaneous Notes * Telephone Encounter - Maggie Rausch - 07/25/2023 9:05 AM EDT Patient has been on wait list for comp since 05/2021 [facility] Checking in on status of appt DR documented in this encounter Plan of Treatment [...] documented as of this encounter Care Teams Messenger Floorperson Relationship Specialty Start Date End Date Sunita Reddy MD [address] [place] [address] PCP - General Family Medicine 07/14/19 Tera Mills PharmD [address] [place] [address] Pharmacist Internal Medicine 09/25/22 08/16/24 documented as of this encounter
--- OUTSIDE RECORDS SUMMARY | 2024-11-11 15:23 | XMS_ITS | Encounter Summary ---
Author Organization [employer] Address [address] [facility] [address] [place] [address] Care Team Providers Care Steel Layer Name Role Phone Sunita Reddy MD Primary Care Provider + Reason for Visit * Reason Onset Date Comments No Show 10/29/2024 Encounter Details Date Type Department Care Team ([facility] Contact Info) Description 10/29/2024 Telephone [facility] [address] [place], [place] [phone] Sunita Reddy MD [address] [place], [place] [phone] No Show Social History Tobacco Use Types Packs/Day Years [...] encounter Miscellaneous Notes * Telephone Encounter - Yessi Sheetspcion - 10/29/2024 11:14 AM EST Pt no show to televisit appt Ns letter printed and mailed. documented in this encounter Plan of Treatment Not on file documented as of this encounter Goals Goal Patient Goal Type Associated Problems Recent Progress Patient-Stated? Author Blood Pressure < 140/90 Blood Pressure 134/84( 024 1:46 PM EDT) No Tera Mills, PharmSingh Record your blood pressure once per day Blood Pressure No Tera Mills PharmD documented as of this encounter Visit Diagnoses Not on filedocumented in this encounter Additional Health Concerns Assessment Noted Time PHQ-9 Depression Total Score: 0 07/23/20 23 10:17 AM EDT documented as of this encounter Care Teams Steel Layer Relationship Specialty Start Date End Date Sunita Reddy MD [address] [place] [phone] PCP - General Family Medicine 07/14/19 documented as of this encounter
--- OUTSIDE RECORDS SUMMARY | 2024-11-11 15:23 | XMS_ITS | Encounter Summary ---
Author Organization [employer] Address [address] [facility] 7t [place] [address] Care Team Providers Care Hospital Intern Name Role Phone Sunita Reddy MD Primary Care Provider + Reason for Visit * Reason Onset Date Comments Appointment Request 10/29/2024 Encounter Details Date Type Department Care Team ([facility] Contact Info) Description 10/29/2024 Telephone [facility] [address] [place], [place] [phone] Sunita Reddy MD [address] [place], [place] [phone] Appointment Request Social History Tobacco Use Types [...] encounter Miscellaneous Notes * Telephone Encounter - Devonte Luna - 10/29/2024 12:16 PM EST Tc from spouse stating pt unfortunately wasn't able to attend telephone visit and would like to reschedule, Please contact pt/spouse at [phone]. (Tanzanian Speaker) documented in this encounter Plan of Treatment [...] documented as of this encounter Care Teams Hospital Intern Relationship Specialty Start Date End Date Sunita Reddy MD [address] [place] [phone] PCP - General Family Medicine 07/14/19 documented as of this encounter
--- OUTSIDE RECORDS SUMMARY | 2024-11-11 15:23 | XMS_ITS | Encounter Summary ---
Author Organization [employer] Address [address] [facility] [address] [place] [address] Care Team Providers Care Wood Grinder Name Role Phone Sunita Reddy MD Primary Care Provider + Encounter Details Date Type Department Care Team (Latest Contact Info) Description 11/02/2024 Travel Social History Tobacco Use Types Packs/Day Years [...] documented as of this encounter Care Teams Wood Grinder Relationship Specialty Start Date End Date Sunita Reddy MD [address] [place] [id number] PCP - General Family Medicine 07/14/19 documented as of this encounter
--- OUTSIDE RECORDS SUMMARY | 2024-11-11 15:23 | XMS_ITS | Encounter Summary ---
Author Organization [employer] Address 75 [facility] 7[address] [place] [address] Care Team Providers Care Local Intermodal Truck Driver Name Role Phone Sunita Reddy MD Primary Care Provider + Encounter Details Date Type Department Care Team ([facility] st Contact Info) Description 11/02/2024 3:30 PM EST Telemedicine [facility] [address] [place], [place] [phone] Sunita Reddy MD [address] [place], [place] [phone] Essential hypertension (Primary Dx); Lumbar spondylosis; Mood disorder (CMS/HCC) Social History Tobacco Use Types Packs/Day Years [...] AM EDT documented as of this encounter Progress Notes * Sunita Reddy MD - 11/02/2024 3:30 PM EST SUBJECTIVE: Miguel Irene is a 59 y.o. year old male who presents for follow up. Denies recent illness, injury, or hospitalization. Patient today on a telehelath visit for fu on HTN. Labs for today's visit were not done. Patient mentions he has a lot of pain while walking and at some point he has to stop abruptly. He mentions to be having insomnia and his medications were changed by psychiatrist. Acute Concerns: Social History Social History Narrative Not on file Patient Active Problem List Diagnosis Calcaneal spur Cobalamin deficiency Edema of lower extremity Vasculogenic erectile dysfunction Essential hypertension Gastroesophageal reflux disease IFG (impaired fasting glucose) Low back pain Lumbar spondylosis Male hypogonadism Mixed hyperlipidemia Mood disorder (CMS/HCC) Onycholysis Osteoarthritis of multiple joints Paresthesia of foot Peripheral sensory neuropathy Pleuritic pain Prediabetes Pure hypercholesterolemia Tarsal tunnel syndrome of left side Urge incontinence of urine Vitamin D deficiency Need for home health care Blood in urine Abnormal TSH Stress incontinence of urine Dermoid cyst Epistaxis Dizziness Dental calculus Periodontal disease Generalized gingival recession, minimal Neck pain Cervical radiculopathy ASCVD (arteriosclerotic cardiovascular disease) Viral upper respiratory tract infection No family history on file. Review of Systems Constitutional: Negative for chills, fatigue and fever. HENT: Negative for congestion, ear pain, nosebleeds, rhinorrhea, sinus pressure, sore throat and trouble swallowing. Eyes: Negative for pain and discharge. Respiratory: Negative for cough, chest tightness and shortness of breath. Cardiovascular: Negative for chest pain, palpitations and leg swelling. Gastrointestinal: Negative for blood in stool, constipation, diarrhea and nausea. Endocrine: Negative for polydipsia and polyuria. Genitourinary: Negative for difficulty urinating, frequency and genital sores. Musculoskeletal: Positive for arthralgias and back pain. Negative for neck pain. Skin: Negative for rash. Allergic/Immunologic: Negative for environmental allergies. Neurological: Negative for dizziness, seizures, weakness, light-headedness and headaches. Hematological: Negative for adenopathy. Psychiatric/Behavioral: Positive for sleep disturbance. Negative for agitation, behavioral problems, self-injury and suicidal ideas. OBJECTIVE: There were no vitals filed for this visit. Physical Exam ASSESSMENT/PLAN Problem List Items Addressed This Visit Essential hypertension - Primary BP seems to be at goal. He was seen at the [facility] clinic and discharged as he achieved the BP goal. Continue Amlodipine, Atenolol and Lisinopril. FU in 5 months. Advised to have COVID and Influenza immunizations at earliest convenience. Lumbar spondylosis Continues with limitations for most ADLs and ambulation. Advised to continue Tylenol, Naproxen and heat to affected area. Advised to attend acupuncture on weekly basis. Patient will call back PRN to refer to pain clinic if symptoms do not improve. Mood disorder ([facility]) Patient has MDD, seen by psychiatrist. He feels safe at home, has support and help for ADLs. Medication management per psychiatrist. Follow Up: Current Outpatient Medications on File Prior to Visit Medication Sig Dispense Refill amLODIPine (Norvasc) 10 MG tablet TAKE 1 TABLET BY MOUTH EVERY MORNING 90 tablet 1 ammonium lactate (Amlactin) 12 % cream Use topically on both feet daily as needed atenolol (Tenormin) 50 MG tablet TAKE 1 TABLET BY MOUTH EVERY MORNING 90 tablet 1 atorvastatin (Lipitor) 40 MG tablet TAKE 1 TABLET BY MOUTH AT BEDTIME 90 tablet 1 Blood Pressure Monitoring (Omron 3 Series BP Monitor) device Use daily as directed 1 each 0 buPROPion XL (Wellbutrin XL) 300 MG 24 hr tablet Take 300 mg by mouth in the morning. cyanocobalamin (Vitamin B-12) 1000 MCG tablet TAKE 1 TABLET BY MOUTH EVERY MORNING 90 tablet 3 D3 Super Strength 50 MCG (2000 UT) capsule TAKE 1 CAPSULE BY MOUTH EVERY MORNING 90 capsule 1 DULoxetine (Cymbalta) [address] capsule Take 1 capsule by mouth 1 (one) time each day at the same time. fluticasone (Flonase) 50 MCG/ACT nasal spray USE 1 SPRAY IN EACH NOSTRIL EVERY MORNING 48 g 0 FREESTYLE LITE test strip TEST BLOOD SUGAR TWICE DAILY 50 strip 11 lisinopril 40 MG tablet TAKE 1 TABLET BY MOUTH EVERY MORNING 90 tablet 1 naproxen (Naprosyn) 500 MG tablet TAKE 1 TABLET BY MOUTH TWICE DAILY 60 tablet 3 omeprazole (PriLOSEC) [address] capsule TAKE 1 CAPSULE BY MOUTH EVERY MORNING BEFORE BREAKFAST 90 capsule 3 QUEtiapine (SEROquel) 200 MG tablet Take 200 mg by mouth at bedtime. tadalafil (Cialis) 5 MG tablet TAKE ONE TABLET BY MOUTH EVERY DAY FOR BLADDER OUTLET TRUEplus Lancets 33G misc TEST BLOOD SUGAR EVERY DAY 100 each 11 No current facility-administered medications on file prior to visit. I, Lynda Fontenot, am serving as a scribe to document services personally performed by Dr. Sunita Reddy, based on the patient's response to questions by provider and provider's statements to me. documented in this encounter Miscellaneous Notes * Assessment & Plan Note - Lynda Fontenot MA - 11/02/2024 5:03 PM EST Associated Problem(s): Mood disorder (CMS/HCC) Patient has MDD, seen by psychiatrist. He feels safe at home, has support and help for ADLs. Medication management per psychiatrist. * Assessment & Plan Note - Lynda Fontenot MA - 11/02/2024 5:02 PM EST Associated Problem(s): Lumbar spondylosis Continues with limitations for most ADLs and ambulation. Advised to continue Tylenol, Naproxen and heat to affected area. Advised to attend acupuncture on weekly basis. Patient will call back PRN to refer to pain clinic if symptoms do not improve. * Assessment & Plan Note - Lynda Fontenot MA - 11/02/2024 4:58 PM EST Associated Problem(s): Essential hypertension BP seems to be at goal. He was seen at the [facility] clinic and discharged as he achieved the BP goal. Continue Amlodipine, Atenolol and Lisinopril. FU in 5 months. Advised to have COVID and Influenza immunizations at earliest convenience. documented in this encounter Plan of Treatment Not on file documented as of this encounter Goals Goal Patient Goal Type Associated Problems Recent Progress Patient-Stated? Author Blood Pressure < 140/90 Blood Pressure 134/84( 024 1:46 PM EDT) No Tera Mills, PharmD Record your blood pressure once per day Blood Pressure No Tera Mills, PharmD documented as of this encounter Visit Diagnoses Diagnosis Essential hypertension- Primary Unspecified essential hypertension Lumbar spondylosis Lumbosacral spondylosis without myelopathy Mood disorder (CMS/HCC) Unspecified episodic mood disorder documented in this encounter Additional Health Concerns Assessment Noted Time PHQ-9 Depression Total Score: 0 07/23/20 23 10:17 AM EDT documented as of this encounter Care Teams Local Intermodal Truck Driver Relationship Specialty Start Date End Date Sunita Reddy MD [address] [place] [id number] PCP - General Family Medicine 07/14/19 documented as of this encounter
== END 2024-11-11 14:25 | disposition home or self-care (01) ==
PROVIDERS: PCP Internal Medicine; Visit Provider Student in an Organized Health Care Education/Training Program
DX: M15.0 Primary generalized (osteo)arthritis (principal)
CPT/HCPCS: 99213

== ENCOUNTER → 2024-11-11 13:16 | Outpatient (BNVA) | payer MEDICAID, SELFPAY | PROVIDERS: PCP Internal Medicine; Visit Provider Student in an Organized Health Care Education/Training Program | DX: M15.0 Primary generalized (osteo)arthritis (principal) | CPT/HCPCS: 99212 ==

== ENCOUNTER 2025-04-05 08:10 | Outpatient (REF) | payer MEDICAID, SELFPAY ==
--- OUTSIDE RECORDS SUMMARY | 2025-04-05 08:22 | XMS_ITS | Encounter Summary ---
Author Organization [employer] Address [address] [facility] [address] [place] [address] Care Team Providers Care Dry Finisher Name Role Phone Sunita Reddy MD Primary Care Provider + Tera Mills PharmD Unavailable Encounter Details Date Type Department Care Team (Late st Contact Info) Description 09/27/2023 Abstract [facility] [address] [place], [place] [phone] Aditi Mildred [address] [place], [place] [phone] Social History Tobacco Use Types Packs/Day Years [...] the past 12 months, has t he [employer], [employer], oil or water [employer] threatened to shut off services in your [...] as of this encounter Plan of Treatment Upcoming Encounters Date Type Department Care Team (Late st Contact Info) Description 04/09/2025 12:15 PM EDT Telemedicine [facility] [address] [place] [address] Sunita Reddy MD [address] [place] [address] 06/10/2025 3:00 PM EDT Office Visit [facility] [address] [place] [address] Nish, Fani, OD [address] [place] [address] 09/24/2025 3:00 PM EST Office Visit [facility] [address] [place] [address] Aditi, Mildred [address] [place] [address] documented as of this encounter Goals Goal Patient Goal Type Associated Problems Recent Progress Patient-Stated? Author Blood Pressure < 140/90 Blood Pressure 134/78( 025 3:02 PM EDT) No Tera Mills, PharmD Record your blood pressure once per day Blood Pressure No Tera Mills, PharmD documented as of this encounter Visit Diagnoses Not on filedocumented in this encounter Additional Health Concerns Assessment Noted Time PHQ-9 Depression Total Score: 0 07/23/20 23 10:17 AM EDT documented as of this encounter Care Teams Dry Finisher Relationship Specialty Start Date End Date Sunita Reddy MD [address] [place] [address] PCP - General Family Medicine 07/14/19 Tera Mills, PharmD [address] [place] [id number] Pharmacist Internal Medicine 09/25/22 08/16/24 documented as of this encounter
[2025-04-05 11:51] LABS: Alanine Aminotransferase 40 U/L (0-40); Albumin Level 3.7 g/dL (3.5-5.0); Alkaline Phosphatase 73 U/L (39-117); Anion Gap 10 (12-20); Aspartate Amino Transferase 31 U/L (5-37); Bilirubin Direct 0.2 mg/dL (0.0-0.5); Bilirubin Total 0.5 mg/dL (0.0-1.0); Blood Urea Nitrogen 10 mg/dL (9-16); Calcium 8.8 mg/dL (8.4-10.2); Carbon Dioxide 28 mmol/L (22-29); Chloride 107 mmol/L (96-108); Estimated Glomerular Filt Rate > 60; Glucose Random 156 mg/dL (60-115); Potassium 3.8 mmol/L (3.3-5.1); Sodium 141 mmol/L (135-145); Total Protein 6.7 g/dL (6.5-8.0)
== END 2025-04-05 08:11 | disposition home or self-care (01) ==
LOC: HO.HHCL 08:10
PROVIDERS: Visit Provider Internal Medicine
DX: E78.2 Mixed hyperlipidemia (principal); I10 Essential (primary) hypertension
CPT/HCPCS: 36415; 80048; 80076

== ENCOUNTER 2025-05-18 12:37 | Outpatient (REF) | payer MEDICAID, SELFPAY ==
[2025-05-18 13:19] LABS: Hemoglobin A1C 154.1702 umol/L; Total Hemoglobin (HGBA1C) 3694.0011 umol/L
--- OUTSIDE RECORDS SUMMARY | 2025-05-18 13:23 | XMS_ITS | Encounter Summary ---
Author Organization [employer] Address [address] [facility] [address] [place] [address] Care Team Providers Care Certified Medical Asst Name Role Phone Sunita Reddy MD Primary Care Provider + Tera Mills PharmD Unavailable [phone] Encounter Details Date Type Department Care Team (Late st Contact Info) Description 09/27/2023 Abstract [facility] [address] [place], [place] [phone] Aditi Mildred [address] [place], [place] [phone] Social History Tobacco Use Types Packs/Day Years [...] the past 12 months, has t he [employer], [employer], oil or water [employer] threatened to shut off services in your [...] Care Team (Late st Contact Info) Description 06/10/2025 3:00 PM EDT Office Visit [facility] [address] [place] [address] NishFani mercado, OD [address] [place] [address] 07/15/2025 12:00 PM EDT Office Visit [facility] [address] [place] [address] Sunita Reddy MD [address] [place] [address] 09/24/2025 3:00 PM EST Office Visit [facility] [address] [place] [address] Aditi, Mildred [address] [place] [address] documented as of this encounter Goals Goal [...] documented as of this encounter Care Teams Certified Medical Asst Relationship Specialty Start Date End Date Sunita Reddy MD [address] [place] [address] PCP - General Family Medicine 07/14/19 Tera Mills, KelyD [address] [place] [id number] Pharmacist Internal Medicine 09/25/22 08/16/24 documented as of this encounter
[2025-05-18 13:59] LABS: Prostate Specific Antigen 1.00 ng/mL (<0.05-4.0)
[2025-05-18 14:13] LABS: Folate 5.0 ng/mL (> or = 4.0); Vitamin B12 1582 pg/mL (200-900)
[2025-05-22 19:44] LABS: Testosterone, Free 51.9 pg/mL (35.0-155.0)
== END 2025-05-18 12:38 | disposition home or self-care (01) ==
LOC: HO.LAB 12:37
PROVIDERS: PCP Internal Medicine; Visit Provider Urology
DX: Z12.5 Encounter for screening for malignant neoplasm of prostate (principal); E53.8 Deficiency of other specified B group vitamins; R73.01 Impaired fasting glucose
CPT/HCPCS: 36415; 82607; 82746; 83036; 84153; 84402; 84403; 84443

== ENCOUNTER 2025-08-17 08:07 | Outpatient (AMB) | payer MEDICAID, SELFPAY ==
--- NOTE | 2025-08-17 08:07 | MHC.OFFVIS ---
Intake Visit Reasons: MEDICATION NOT WORKING LABS DONE Intake Note: Patient is Present for Follow up medication is not working Urology Medication: Tadalafil Antibiotic Allergies:None Blood Thinners: Aspirin Recent LABS: 05/18/25 PSA: 1.00 Total Testosterone: 337 , Fr Testosterone 51.9 Double Head Machine Operator Required: Yes Double Head Machine Operator Language: Shared Services And Outsourcing Manager Services: Double Head Machine Operator Present Accompanied by: Self / Same As Patient Allergies ketorolac (From TORADOL) Allergy (Intermediate, Verified 08/17/25 08:09) dizziness tramadol Allergy (Intermediate, Verified 08/17/25 08:09) dizziness HPI Comments Details: Miguel is a pleasant male. He is a patient of Dr. Reddy. He is seen for the following urologic conditions - lower urinary tract symptoms - hypogonadism - erectile dysfunction Maltese translation provided by qualified product manager medical device Yearly follow-up Variable response to daily tadalafil Add on demand Otherwise feelings of energy and borderline testosterone are resolved Waking 2-3 times at night Discussed management of fluids 3 hours within bed Lower urinary tract symptoms Prior laser prostatectomy Ongoing urge and urge frequency Prior cystoscopy with bladder neck contracture 01/09 cystoscopy with open bladder neck Hypogonadism Labs - 10/11 T 342 F 61 PSA 0.6, 07/14 440 1.2, 05/14 340 1.0 Erectile dysfunction in setting of diabetes Prior responsiveness to Viagra 100 mg Improvement with daily tadalafil PFSH Medical History (Updated 11/11/24 @ 14:32 by Marilyn Crooks MD) Polyosteoarthritis Ankle pain, right Ankle pain, right Knee pain, right Knee pain, left Rib pain on right side Nocturia Surgical History History of prostate surgery (~2015) Family History Other CVD (cardiovascular disease) HTN (hypertension) Social History Household Members: Spouse Alcohol intake: former Patient Tobacco Use Status: Never used Tobacco e-Cigarette/Vaping Use: Never Used Current occupational status: unemployed Review of Systems Const Denies chills and Denies fever(s) Card Reports no additional complaints and Denies syncope Resp Denies cough GI Denies abdominal pain and Denies heartburn Reports as per HPI and Denies change in libido Neuro Denies syncope Psych Denies change in libido Endo Denies change in libido Physical Exam Const General: cooperative, healthy appearing, comfortable and no acute distress Orientation/consciousness: patient oriented x3 HEENT Face and sinus: Yes normal facial exam Mouth: moist mucous membranes Neck Neck: Yes normal visual inspection, Yes full ROM and Yes trachea midline Chest Chest palpation & inspection: normal inspection of the chest Resp Effort & Inspection: normal respiratory effort, able to speak in complete sentences and no respiratory distress GI Inspection: Yes normal to inspection Back/Spine/Pelvis Cervical Spine: normal cervical lordosis Thoracic/Lumbar Spine: thoracic and lumbar spine normal to inspection Skin General skin exam: no rashes or lesions noted Neuro General: patient oriented x3, gait normal, tone normal and moves all extremities Extrem General: Yes normal to inspection and Yes capillary refill normal Assessment & Plan Assessment & Plan (1) Bladder outlet obstruction: Code(s): N32.0 - Bladder-neck obstruction Category: Medical (2) Erectile dysfunction due to arterial insufficiency: Code(s): N52.01 - Erectile dysfunction due to arterial insufficiency Category: Medical Plan Six-month follow-up Trial daily plus on demand tadalafil Medications: Changed From tadalafil administer approximately 30min before sexual activity; do not use more than 1 dose per 24hrs 20 mg PO DAILY PRN 30 tabs 0RF sexual activity To tadalafil administer approximately 30min before sexual activity; do not use more than 1 dose per 24hrs 20 mg PO ONCE PRN 30 tabs 0RF sexual activity 30 days Refilled tadalafil 5 mg PO DAILY 90 tabs 3RF bladder outlet 90 days N52.01 - Erectile dysfunction due to arterial insufficiency Patient Instructions: This note is constructed using voice recognition software. While every effort has been made to ensure accuracy plate painter apprentice errors may have been included. Imaging studies, laboratory and physical exam results were discussed and reviewed in detail. No major barriers to patient understanding were identified. An opportunity to ask questions regarding the treatment plan was provided. All questions were answered. The patient expressed understanding and agreement with the above treatment plan. The patient is aware they should contact our office by phone for worsening of their current condition or the appearance of new urologic symptoms. Compliance is encouraged with any medications and followup testing that is ordered. It is a privilege to participate in the urologic care of your patient. If you have any questions or concerns regarding treatment for the above conditions, or other urologic issues, please do not hesitate to contact me. The office telephone contact is [phone]. Sincerely, Dr Bronson Kim MD, [facility] - Urology Compassionate Specialist Care for the Genitourinary System Coding Level of Care Code Est Pt Level 4 (69716) Complex EM visit Add On G2211 Diagnoses Bladder outlet obstruction N32.0 Erectile dysfunction due to arterial insufficiency N52.01
== END 2025-08-17 08:40 | disposition home or self-care (01) ==
LOC: HO.HUSH 08:08
PROVIDERS: PCP Internal Medicine; Visit Provider Urology
DX: N32.0 Bladder-neck obstruction (principal); N52.01 Erectile dysfunction due to arterial insufficiency
CPT/HCPCS: 99214

== ENCOUNTER → 2025-08-17 08:07 | Outpatient (BNVA) | payer MEDICAID, SELFPAY | PROVIDERS: PCP Internal Medicine; Visit Provider Urology | DX: N32.0 Bladder-neck obstruction (principal); N52.01 Erectile dysfunction due to arterial insufficiency | CPT/HCPCS: 99212 ==